=== PATIENT | male | born 1965 | race Two or more races ===

== ENCOUNTER 2017-06-18 18:46 | Inpatient (IN) | payer OTHER ==
[~2017-06-18] VITALS: Ht 180.3 cm; Wt 81.6 kg
[2017-06-18] MEDS ORDERED: Albuterol/Ipratropium 3ml neb HHN ONE (19:15)
--- NOTE | 2017-06-18 19:18 | Emergency Room Report ---
History of Present Illness General Chief Complaint: Abnormal Labs Source: Patient, EMS Present Illness HPI Patient 52-year-old male sent in by primary care physician from group home after increased white blood count and elevated potassium level. Patient had reportedly been noted to have potassium level greater than 6. The patient also had elevated white blood count. 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 Patient is noted to have prior history of brain tumor Allergies: Coded Allergies: No Known Allergies (Unverified , 06/18/17) Patient History Past Medical History: see triage record Reviewed Nursing Documentation: PMH: Agreed, PSxH: Agreed Review of Systems All Other Systems: negative except mentioned in HPI Physical Exam Vital Signs Date Time Temp Pulse Resp B/P (MAP) Pulse Ox O2 Delivery O2 Flow Rate FiO2 06/18/17 18:38 96.1 74 16 98/52 94 Trach Collar 4.0 Sp02 EP Interpretation: reviewed, normal General Appearance: normal inspection, alert, mild distress, Chronically Ill Head: atraumatic ENT: normal ENT inspection, hearing grossly normal, other - dry mucous membranes Neck: normal inspection, full range of motion, supple, no bony tend, tracheotomy Respiratory: normal inspection, no respiratory distress, no retraction, crackles Cardiovascular #1: regular rate, rhythm, no edema Gastrointestinal: normal inspection, normal bowel sounds, non tender, soft, no guarding, no hernia, other - gtube site CDI Genitourinary: no CVA tenderness Musculoskeletal: normal inspection, back normal, normal range of motion Neurologic: normal inspection, alert, oriented x3, responsive, 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 Differential diagnosis included wasn't limited to sepsis, acidosis, pneumonia, renal failure among others.Because of complexity of patient's case laboratory testing and imaging studies were ordered. EKG interpreted by me showed normal sinus rhythm with a rate of [address] changes. Twaves appeared somewhat peaked. The patient was given IV fluids as well as IV calcium and IV antibiotics. Patient was given Kayexalate in the G-tube. Dr. Herminia Thomson was contacted for inpatient management for primary care physcian. Labs Test 06/18/17 18:56 06/18/17 20:47 White Blood Count 12.4 K/UL (4.8-10.8) Red Blood Count 3.77 M/UL (4.70-6.10) Hemoglobin 10.2 G/DL (14.2-18.0) Hematocrit 33.9 % (42.0-52.0) Mean Corpuscular Volume 90 FL (80-99) Mean Corpuscular Hemoglobin 27.0 PG (27.0-31.0) Mean Corpuscular Hemoglobin Concent 30.0 G/DL (32.0-36.0) Red Cell Distribution Width 18.8 % (11.6-14.8) Platelet Count 376 K/UL (150-450) Mean Platelet Volume 5.4 FL (6.5-10.1) Neutrophils (%) (Auto) 69.9 % (45.0-75.0) Lymphocytes (%) (Auto) 18.4 % (20.0-45.0) Monocytes (%) (Auto) 7.9 % (1.0-10.0) Eosinophils (%) (Auto) 2.2 % (0.0-3.0) Basophils (%) (Auto) 1.6 % (0.0-2.0) Sodium Level 136 MMOL/L (136-145) Potassium Level 5.6 MMOL/L (3.5-5.1) Chloride Level 98 MMOL/L (98-107) Carbon Dioxide Level 34 MMOL/L (21-32) Anion Gap 5 mmol/L (5-15) Blood Urea Nitrogen 41 mg/dL (7-18) Creatinine 1.8 MG/DL (0.55-1.30) Estimat Glomerular Filtration Rate 40.0 mL/min (>60) Glucose Level 99 MG/DL (74-106) Lactic Acid Level 0.40 mmol/L (0.66-2.22) Calcium Level 9.2 MG/DL (8.5-10.1) Total Bilirubin 0.2 MG/DL (0.2-1.0) Aspartate Amino Transf (AST/SGOT) 17 U/L (15-37) Alanine Aminotransferase (ALT/SGPT) 19 U/L (12-78) Alkaline Phosphatase 97 U/L (46-116) Total Creatine Kinase 14 U/L (26-308) Creatine Kinase MB < 0.5 NG/ML (0.0-3.6) Creatine Kinase MB Relative Index 3.5 Troponin I 0.000 ng/mL (0.000-0.056) Total Protein 7.5 G/DL (6.4-8.2) Albumin 2.5 G/DL (3.4-5.0) Globulin 5.0 g/dL Albumin/Globulin Ratio 0.5 (1.0-2.7) Urine Color Pale yellow Urine Appearance Clear Urine pH 6 (4.5-8.0) Urine Specific [place] 1.005 (1.005-1.035) Urine Protein Negative (NEGATIVE) Urine Glucose (UA) Negative (NEGATIVE) Urine Ketones Negative (NEGATIVE) Urine Occult Blood Negative (NEGATIVE) Urine Nitrite Negative (NEGATIVE) Urine Bilirubin Negative (NEGATIVE) Urine Urobilinogen Normal MG/DL (0.0-1.0) Urine Leukocyte Esterase Negative (NEGATIVE) EKG Diagnostic Results Rate: normal Rhythm: NSR ST Segments: no acute changes Rhythm Strip Diag. Results EP Interpretation: yes Rhythm: NSR, no PVC's, no ectopy Last Vital Signs Date Time Temp Pulse Resp B/P (MAP) Pulse Ox O2 Delivery O2 Flow Rate FiO2 06/18/17 18:38 96.1 74 16 98/52 94 Trach Collar 4.0 Status: unchanged Disposition: ADMITTED INPATIENT Condition: Serious Referrals: HERMINIA THOMSON (PCP) Bear Gavin Jun 18, 2017 19:18
[2017-06-18 19:20] LABS: BASOPHILS % (AUTO) 1.6 % (0.0-2.0); EOSINOPHILS % (AUTO) 2.2 % (0.0-3.0); LYMPHOCYTES % (AUTO) 18.4 % (20.0-45.0); MEAN CORPUSCULAR VOLUME 90 FL (80-99); MEAN PLATELET VOLUME 5.4 FL (6.5-10.1); MONOCYTES % (AUTO) 7.9 % (1.0-10.0); NEUTROPHILS % (AUTO) 69.9 % (45.0-75.0); PLATELET COUNT 376 K/UL (150-450); RED BLOOD COUNT 3.77 M/UL (4.70-6.10); RED CELL DISTRIBUTION WIDTH 18.8 % (11.6-14.8); WHITE BLOOD COUNT 12.4 K/UL (4.8-10.8)
[2017-06-18 19:41] LABS: ANION GAP 5 mmol/L (5-15); CALCIUM 9.2 MG/DL (8.5-10.1); CARBON DIOXIDE 34 MMOL/L (21-32); CHLORIDE 98 MMOL/L (98-107); CREATININE 1.8 MG/DL (0.55-1.30); POTASSIUM 5.6 MMOL/L (3.5-5.1); SODIUM 136 MMOL/L (136-145)
[2017-06-18 19:59] LABS: ALANINE AMINOTRANSFERASE 19 U/L (12-78); ALBUMIN/GLOBULIN RATIO 0.5 (1.0-2.7); ASPARTATE AMINO TRANSFERASE 17 U/L (15-37); CKMB < 0.5 NG/ML (0.0-3.6); TOTAL PROTEIN 7.5 G/DL (6.4-8.2)
[2017-06-18 20:00] VITALS: BP 85/61
[2017-06-18] MEDS ORDERED: Sodium Polystyrene Sulfonate 15gm Powder GT ONE (20:15)
[2017-06-18 21:28] LABS: APPEARANCE,URINE CLEAR; KETONES,URINE NEGATIVE (NEGATIVE); LEUKOCYTE ESTERASE ,URINE NEGATIVE (NEGATIVE); NITRITE,URINE NEGATIVE (NEGATIVE); PH,URINE 6 (4.5-8.0); PROTEIN,URINE NEGATIVE (NEGATIVE); UROBILINOGEN,URINE NORMAL MG/DL (0.0-1.0)
[2017-06-18] MEDS ORDERED: VANCOMYCIN GT (21:38)
[2017-06-18] MEDS ORDERED: ATORVASTATIN CA20 MG ORAL (21:38)
[2017-06-18] MEDS ORDERED: MILK OF MA400 MG/51 GT (21:38)
[2017-06-18] MEDS ORDERED: KEPPRA XR750 MG GT (21:38)
[2017-06-18] MEDS ORDERED: COLACE100 MG GT (21:38)
[2017-06-18] MEDS ORDERED: VALPROIC A250 MG/5 M PO (21:38)
[2017-06-18] MEDS ORDERED: SENNA8.6 M2 GT (21:38)
[2017-06-18] MEDS ORDERED: ACETAMINOPHEN120 MG GT (21:38)
[2017-06-18] MEDS ORDERED: LOVENOX10 M4 SUBQ (21:38)
[2017-06-18] MEDS ORDERED: FLEET ENEMA133 M1 RC (21:38)
[2017-06-18] MEDS ORDERED: DULCOLAX10 MG RC (21:38)
[2017-06-18] MEDS ORDERED: HUMULIN R100 UNIT/1 SUBQ (21:39)
[2017-06-18 22:57] VITALS: BP 84/51
[2017-06-18] MEDS ORDERED: Calcium Chloride 10% 10ml carpuject IVP ONE (23:00)
[2017-06-19] VITALS (7 sets, daily range): BP systolic 100–130; BP diastolic 61–81
[2017-06-19] MEDS ORDERED: Ipratropium 0.02% Inh Soln 2.5ml UD HHN PRN (05:30)
[2017-06-19] MEDS ORDERED: Milk of Magnesia 30ml Ud GT PRN (05:45)
[2017-06-19] MEDS ORDERED: Acetaminophen 650mg/20.3ml GT PRN (05:45)
[2017-06-19] MEDS ORDERED: Fleet's Enema 133ml RECTAL ONE (05:45)
[2017-06-19] MEDS ORDERED: Zosyn 3.375gm/50ml Premix 50 ML IVPB SCH (06:00)
[2017-06-19] MEDS ORDERED: NS 55 ML IV ONE (06:58)
[2017-06-19] MEDS ORDERED: Zosyn 3.375gm inj ONE (06:58)
[2017-06-19] MEDS ORDERED: Fleet's Enema 133ml RECTAL PRN (07:00)
[2017-06-19] MEDS ORDERED: Vancomycin 1.5gm/D5W 250ml 250 ML IVPB ONE ×2 (07:00→10:00)
[2017-06-19] MEDS: Piperacillin/Tazobactam 3.375 GM in D5W 55 ML IVPB SCH ×3 (07:09→23:48)
[2017-06-19] MEDS: Ipratropium 0.02% Inh Soln 2.5ml UD HHN SCH ×3 (07:18→19:07)
--- NOTE | 2017-06-19 09:06 | Diagnostic Imaging Report ---
Indication: SOB Technique: One view of the chest Comparison: none Findings: There is atelectasis and consolidation at the right lung base. Atelectasis, consolidation, and possible scarring are seen in the left mid and upper lung. There is tracheostomy. There is a right arm PICC versus arm port catheter. There is a left chest pacemaker. The heart is borderline enlarged. Inspiration is suboptimal. Pleural spaces appear to be clear. Impression: Right basilar mid and upper lung consolidation and atelectasis. Borderline cardiomegaly Other findings as noted
--- NOTE | 2017-06-19 09:15 | History & Physical ---
History and Physical History & Physicial 52 year old male admitted for elevated WBC and elevated K. Patient noted to be in acute renal failure. Patient with respiratory failure and trach care. PMH elevated cholesterol trach GT respiratory failure MEDS/ALLERGIES Noted PHYSICAL EXAM WDWN NAD coarse breath sounds bilaterally without rhonchi or wheeze [id number] without MRG NABS nontender no HSM GT trach no CCE nonfocal Laboratory Tests Test 06/18/17 18:56 06/18/17 20:47 White Blood Count 12.4 K/UL (4.8-10.8) H Red Blood Count 3.77 M/UL (4.70-6.10) L Hemoglobin 10.2 G/DL (14.2-18.0) L Hematocrit 33.9 % (42.0-52.0) L Mean Corpuscular Volume 90 FL (80-99) Mean Corpuscular Hemoglobin 27.0 PG (27.0-31.0) Mean Corpuscular Hemoglobin Concent 30.0 G/DL (32.0-36.0) L Red Cell Distribution Width 18.8 % (11.6-14.8) H Platelet Count 376 K/UL (150-450) Mean Platelet Volume 5.4 FL (6.5-10.1) L Neutrophils (%) (Auto) 69.9 % (45.0-75.0) Lymphocytes (%) (Auto) 18.4 % (20.0-45.0) L Monocytes (%) (Auto) 7.9 % (1.0-10.0) Eosinophils (%) (Auto) 2.2 % (0.0-3.0) Basophils (%) (Auto) 1.6 % (0.0-2.0) Sodium Level 136 MMOL/L (136-145) Potassium Level 5.6 MMOL/L (3.5-5.1) H Chloride Level 98 MMOL/L (98-107) Carbon Dioxide Level 34 MMOL/L (21-32) H Anion Gap 5 mmol/L (5-15) Blood Urea Nitrogen 41 mg/dL (7-18) H Creatinine 1.8 MG/DL (0.55-1.30) H Estimat Glomerular Filtration Rate 40.0 mL/min (>60) Glucose Level 99 MG/DL (74-106) Lactic Acid Level 0.40 mmol/L (0.66-2.22) L Calcium Level 9.2 MG/DL (8.5-10.1) Total Bilirubin 0.2 MG/DL (0.2-1.0) Aspartate Amino Transf (AST/SGOT) 17 U/L (15-37) Alanine Aminotransferase (ALT/SGPT) 19 U/L (12-78) Alkaline Phosphatase 97 U/L (46-116) Total Creatine Kinase 14 U/L (26-308) L Creatine Kinase MB < 0.5 NG/ML (0.0-3.6) Creatine Kinase MB Relative Index 3.5 Troponin I 0.000 ng/mL (0.000-0.056) Total Protein 7.5 G/DL (6.4-8.2) Albumin 2.5 G/DL (3.4-5.0) L Globulin 5.0 g/dL Albumin/Globulin Ratio 0.5 (1.0-2.7) L Urine Color Pale yellow Urine Appearance Clear Urine pH 6 (4.5-8.0) Urine Specific [place] 1.005 (1.005-1.035) Urine Protein Negative (NEGATIVE) Urine Glucose (UA) Negative (NEGATIVE) Urine Ketones Negative (NEGATIVE) Urine Occult Blood Negative (NEGATIVE) Urine Nitrite Negative (NEGATIVE) Urine Bilirubin Negative (NEGATIVE) Urine Urobilinogen Normal MG/DL (0.0-1.0) Urine Leukocyte Esterase Negative (NEGATIVE) IMPRESSION respiratory failure trach GT hyperkalemia acute renal failure PLAN IV antibiotics respiratory care trach care oxygen care [facility] meds supportive care suction no wean oxygen therapy prognosis guarded HERMINIA LOVE Jun 19, 2017 09:15
[2017-06-19] MEDS: Valproic Acid 250mg/5ml Liquid GT SCH ×3 (09:45→18:24)
[2017-06-19] MEDS: levETIRAcetam 500mg/5ml Liquid GT SCH ×2 (09:46→23:47)
[2017-06-19] MEDS: Enoxaparin 40mg Inj SUBQ SCH (09:50)
[2017-06-19 10:25] LABS: BASOPHILS % (AUTO) 1.2 % (0.0-2.0); EOSINOPHILS % (AUTO) 1.6 % (0.0-3.0); LYMPHOCYTES % (AUTO) 7.5 % (20.0-45.0); MEAN CORPUSCULAR HEMOGLOBIN 26.8 PG (27.0-31.0); MEAN CORPUSCULAR HGB CONC 30.1 G/DL (32.0-36.0); MEAN CORPUSCULAR VOLUME 89 FL (80-99); MEAN PLATELET VOLUME 5.8 FL (6.5-10.1); MONOCYTES % (AUTO) 7.3 % (1.0-10.0); NEUTROPHILS % (AUTO) 82.4 % (45.0-75.0); PLATELET COUNT 409 K/UL (150-450); RED BLOOD COUNT 4.27 M/UL (4.70-6.10); RED CELL DISTRIBUTION WIDTH 18.8 % (11.6-14.8); WHITE BLOOD COUNT 12.2 K/UL (4.8-10.8)
--- NOTE | 2017-06-19 10:27 | Diagnostic Imaging Report ---
Indication: COPD dyspnea Technique: One view of the chest Comparison: 06/18/2017 Findings: There is interim development of reticulonodular infiltrate in the right upper lobe. Peripheral and central infiltrates versus scarring are again demonstrated in the left lung. Tracheostomy remains. Left chest pacemaker remains. Previously demonstrated right basilar atelectasis has cleared. Right arm PICC remains Impression: New right upper lobe infiltrate. Interim clearing of previously demonstrated right basilar atelectasis Stable left lung parenchymal disease, as described
[2017-06-19 10:37] LABS: ANION GAP 7 mmol/L (5-15); CALCIUM 9.5 MG/DL (8.5-10.1); CARBON DIOXIDE 31 MMOL/L (21-32); CHLORIDE 104 MMOL/L (98-107); CREATININE 1.4 MG/DL (0.55-1.30); GLOMERULAR FILTRATION RATE 53.4 mL/min (>60); SODIUM 141 MMOL/L (136-145)
[2017-06-19 10:40] LABS: POTASSIUM 6.3 MMOL/L (3.5-5.1)
[2017-06-19] MEDS ORDERED: Sodium Polystyrene Sulfonate 15gm Powder GT ONE (11:45)
[2017-06-19] MEDS: Insulin NovoLOG Flexpen S/S (Mod) SUBQ SCH ×2 (12:00→18:00)
[2017-06-19] MEDS ORDERED: Dyna-Hex 2% Top Sol 2oz TOPIC SCH (20:00)
[2017-06-19 20:23] LABS: ANION GAP 7 mmol/L (5-15); CALCIUM 8.7 MG/DL (8.5-10.1); CARBON DIOXIDE 30 MMOL/L (21-32); CHLORIDE 104 MMOL/L (98-107); CREATININE 1.3 MG/DL (0.55-1.30); GLOMERULAR FILTRATION RATE 58.2 mL/min (>60); POTASSIUM 4.9 MMOL/L (3.5-5.1); SODIUM 140 MMOL/L (136-145)
[2017-06-19] MEDS ORDERED: Atorvastatin 20mg tab GT SCH (21:00)
[2017-06-20] MEDS: Ipratropium 0.02% Inh Soln 2.5ml UD HHN SCH ×3 (01:00→13:18)
[2017-06-20 01:59] LABS: ANION GAP 2 mmol/L (5-15); CARBON DIOXIDE 31 MMOL/L (21-32); CHLORIDE 111 MMOL/L (98-107); GLOMERULAR FILTRATION RATE > 60 mL/min (>60); POTASSIUM 3.6 MMOL/L (3.5-5.1); SODIUM 144 MMOL/L (136-145)
[2017-06-20] MEDS ORDERED: Sodium Chloride 500ML 500 ML IVPB ONE (03:00)
[2017-06-20 04:00] VITALS: BP 104/72
[2017-06-20] MEDS: Insulin NovoLOG Flexpen S/S (Mod) SUBQ SCH ×3 (06:00→12:24)
[2017-06-20] MEDS ORDERED: Vancomycin 1 GM in D5W 275 ML IVPB SCH ×2 (07:00→10:00)
--- NOTE | 2017-06-20 07:00 | General Progress Note ---
Assessment/Plan Assessment/Plan IMPRESSION respiratory failure trach GT hyperkalemia acute renal failure PLAN IV antibiotics respiratory care as is trach care oxygen care SNF meds supportive care suction no wean oxygen therapy monitor lytes and intervene prognosis guarded Subjective Allergies: Coded Allergies: No Known Allergies (Unverified , 06/18/17) Subjective care noted no distress Objective Last 24 Hour Vital Signs Date Time Temp Pulse Resp B/P (MAP) Pulse Ox O2 Delivery O2 Flow Rate FiO2 06/20/17 04:00 84 06/20/17 04:00 10.0 50 06/20/17 04:00 97.0 80 20 104/72 98 T-piece 12.0 50 06/20/17 02:00 90 06/20/17 01:29 81 20 94 T-piece 12.0 50 06/20/17 01:28 81 20 94 T-piece 12.0 50 06/20/17 01:28 T-piece 10.0 50 06/20/17 01:27 94 T-piece 12.0 50 06/20/17 00:24 97.9 T-piece 50 06/20/17 00:00 10.0 50 06/19/17 20:00 97.9 86 18 116/77 98 T-piece 12.0 50 06/19/17 20:00 88 06/19/17 20:00 10.0 50 06/19/17 19:25 88 18 98 T-piece 12.0 50 06/19/17 19:10 T-piece 10.0 50 06/19/17 19:10 85 20 95 T-piece 12.0 50 06/19/17 19:09 95 T-piece 12.0 50 06/19/17 19:07 85 20 T-piece 12.0 50 06/19/17 16:05 90 06/19/17 16:00 97.7 91 18 117/81 93 T-piece 06/19/17 16:00 10.0 50 06/19/17 13:25 91 50 06/19/17 13:20 89 17 92 T-piece 12.0 50 06/19/17 13:02 91 20 T-piece 12.0 50 06/19/17 13:02 92 18 T-piece 12.0 50 06/19/17 13:02 92 T-piece 12.0 50 06/19/17 13:02 T-piece 10.0 50 06/19/17 12:00 94 70 06/19/17 12:00 10.0 70 06/19/17 12:00 97.2 90 19 100/67 93 T-piece 13.0 06/19/17 11:43 89 06/19/17 08:48 18 92 15.0 70 06/19/17 08:00 10.0 35 06/19/17 08:00 97.3 89 18 104/68 93 T-piece 06/19/17 08:00 91 06/19/17 07:31 81 18 97 T-piece 10.0 35 06/19/17 07:18 35 06/19/17 07:18 80 18 T-piece 10.0 35 06/19/17 07:15 93 T-piece 10.0 35 06/19/17 07:15 T-piece 10.0 35 Laboratory Tests 06/19/17 09:50: White Blood Count 12.2H, Red Blood Count 4.27L, Hemoglobin 11.5L, Hematocrit 38.1L, Mean Corpuscular Volume 89, Mean Corpuscular Hemoglobin 26.8L, Mean Corpuscular Hemoglobin Concent 30.1L, Red Cell Distribution Width 18.8H, Platelet Count 409, Mean Platelet Volume 5.8L, Neutrophils (%) (Auto) 82.4H, Lymphocytes (%) (Auto) 7.5L, Monocytes (%) (Auto) 7.3, Eosinophils (%) (Auto) 1.6, Basophils (%) (Auto) 1.2, Sodium Level 141, Potassium Level 6.3*H, Chloride Level 104, Carbon Dioxide Level 31, Anion Gap 7, Blood Urea Nitrogen 32H, Creatinine 1.4H, Estimat Glomerular Filtration Rate 53.4, Glucose Level 108H, Calcium Level 9.5 06/19/17 18:15: Sodium Level 140, Potassium Level 4.9, Chloride Level 104, Carbon Dioxide Level 30, Anion Gap 7, Blood Urea Nitrogen 25H, Creatinine 1.3, Estimat Glomerular Filtration Rate 58.2, Glucose Level 83, Calcium Level 8.7 06/20/17 01:30: Sodium Level 144, Potassium Level 3.6, Chloride Level 111H, Carbon Dioxide Level 31, Anion Gap 2L, Blood Urea Nitrogen 20H, Creatinine 1.0, Estimat Glomerular Filtration Rate > 60, Glucose Level 82, Calcium Level 7.0L Height (Feet): 5 Height (Inches): 11.00 Weight (Pounds): 180 Objective WDWN NAD trach clear breath sounds bilaterally without rhonchi or wheeze [id number] without MRG NABS nontender no HSM; GT no CCE nonfocal HERMINIA LOVE Jun 20, 2017 07:00
[2017-06-20 08:19] VITALS: BP 138/92
[2017-06-20] MEDS: Piperacillin/Tazobactam 3.375 GM in D5W 55 ML IVPB SCH (08:41)
[2017-06-20] MEDS: Valproic Acid 250mg/5ml Liquid GT SCH ×2 (09:16→12:23)
[2017-06-20] MEDS: levETIRAcetam 500mg/5ml Liquid GT SCH (09:17)
[2017-06-20] MEDS: Enoxaparin 40mg Inj SUBQ SCH (09:18)
[2017-06-20 10:20] LABS: ANION GAP 3 mmol/L (5-15); BASOPHILS % (AUTO) 2.2 % (0.0-2.0); CALCIUM 8.8 MG/DL (8.5-10.1); CARBON DIOXIDE 34 MMOL/L (21-32); CHLORIDE 106 MMOL/L (98-107); CREATININE 1.1 MG/DL (0.55-1.30); EOSINOPHILS % (AUTO) 3.6 % (0.0-3.0); GLOMERULAR FILTRATION RATE > 60 mL/min (>60); LYMPHOCYTES % (AUTO) 17.1 % (20.0-45.0); MEAN CORPUSCULAR HEMOGLOBIN 27.4 PG (27.0-31.0); MEAN CORPUSCULAR HGB CONC 30.7 G/DL (32.0-36.0); MEAN CORPUSCULAR VOLUME 89 FL (80-99); MEAN PLATELET VOLUME 6.2 FL (6.5-10.1); MONOCYTES % (AUTO) 10.5 % (1.0-10.0); NEUTROPHILS % (AUTO) 66.6 % (45.0-75.0); PLATELET COUNT 342 K/UL (150-450); POTASSIUM 4.2 MMOL/L (3.5-5.1); RED BLOOD COUNT 3.75 M/UL (4.70-6.10); RED CELL DISTRIBUTION WIDTH 18.7 % (11.6-14.8); SODIUM 143 MMOL/L (136-145); WHITE BLOOD COUNT 8.3 K/UL (4.8-10.8)
[2017-06-20] MEDS ORDERED: Tubing IV Secondary IV ONE (11:27)
[2017-06-20] MEDS ORDERED: Sterile Water Irrig 1000ml IRRIG ONE (11:27)
[2017-06-20] MEDS ORDERED: NS 275ml ONE ×2 (11:27→15:36)
[2017-06-20 11:34] VITALS: BP 99/60
[2017-06-20] MEDS ORDERED: Vancomycin 1250mg/D5W 250ml 250 ML IVPB SCH (12:00)
[2017-06-20 13:32] VITALS: BP 126/81
--- NOTE | 2017-06-23 07:44 | Discharge Summary ---
Discharge Summary Hospital Course Date of Admission Jun 18, 2017 at 20:35 Date of Discharge Jun 20, 2017 at 15:37 Admitting Diagnosis hyperkalemia, pneumonia HPI Sushant Orozco is a 52 year old male who was admitted on Jun 18, 2017 at 20: 35 for Hyperkalemia,Pneumonia Hospital Course dc summary #[id number] Discharge Medications Continued Medications: Acetaminophen* (Tylenol*) 120 Mg Supp.rect 640 MG GT Q4H PRN for Mild Pain/Temp > 100.5, SUPP Atorvastatin Calcium* (Atorvastatin Calcium*) 20 Mg Tablet 20 MG ORAL BEDTIME, TAB Bisacodyl (Dulcolax) 10 Mg Supp.rect 10 MG RC, SUPP Bisacodyl (Dulcolax) 10 Mg Supp.rect 10 MG RC PRN for Constipation, SUPP Docusate Sodium* (Colace*) 100 Mg Capsule 100 MG GT DAILY, CAP Enoxaparin* (Lovenox*) 40 Mg/0.4 Ml Inj 40 MG SUBQ DAILY Insulin Regular, Human (Humulin R) 100 Unit/1 Ml Vial 0 SUBQ, VIAL Levetiracetam (Keppra Xr) 750 Mg Tab.er.24h 750 MG GT BID, #30 TAB 0 Refills Magnesium Hydroxide* (Milk Of Magnesia*) 400 Mg/5 Ml Oral.susp 30 ML GT DAILY, ML Na Phos,M-B/Na Phos,Di-Ba (Fleet Enema) 133 Ml Enema 133 ML RC PRN for Constipation, EA Sennosides (Senna) 8.6 Mg Tablet 8.6 MG GT, TAB Valproate Sodium (Valproic Acid) 250 Mg/5 Ml Solution 250 MG PO TID Discharge Condition Upon Discharge: stable Discharge Disposition Patient was discharged to SNF/Subacute Facility(03) Discharge Diagnoses: Discharge Instructions Discharge Instructions Special Instructions I have been assigned to complete a D/C Summary on this account. I was not involved in the patient management Kym Vieyra NP ([facility]anchte[facility]) Jun 23, 2017 07:44
--- NOTE | 2017-06-23 16:45 | Discharge Summary 2 SIG ---
DATE OF ADMISSION: 06/18/2017 DATE OF DISCHARGE: 06/20/2017 REASON FOR ADMISSION: 52-year-old male with history of brain tumor, respiratory failure, tracheostomy dependent, dysphagia, G-tube, COPD, diabetes, and high cholesterol, was sent from the senior care facility for evaluation due to leukocytosis and persistent hyperkalemia. Upon evaluation in the emergency room, the patient was found to have leukocytosis, WBC -12.4, potassium -5.6, BUN -41, and creatinine- 1.8. EKG revealed normal sinus rhythm. Somewhat peaked T-waves. Chest x-ray revealed right basilar mid and upper lung consolidation and atelectasis, borderline cardiomegaly. Lactic acid was within normal limits, and troponin was negative. The patient was admitted for further management of respiratory failure, hyperkalemia, acute renal failure, and possible pneumonia. HOSPITAL STAY: The patient was admitted. The patient was started on IV fluids and empiric antibiotics. Tracheostomy care was provided. Pulmonary toilet was provided. Patient was suctioned as needed. Fraction of inspired oxygen via trach tube was titrated to keep saturation above 92%. Strict aspirations were maintained. The patient was receiving G-tube feeding and able to tolerate feeding. Home medications were resumed. Hyperkalemia was treated. Electrolytes were closely monitored. The patient was clinically improving with the treatment. Leukocytosis resolved. No fever. Potassium was down to 4.2. Renal parameters down to normal. BUN-19 and creatinine- 1.1. The patient was stable for discharge back to senior care facility. Prognosis guarded. FINAL DIAGNOSES: 1. Respiratory failure 2. Tracheostomy dependence. 3. Acute renal failure, likely secondary to dehydration, resolved. 4. Hyperkalemia, resolved. 5. Possible pneumonia. DISCHARGE MEDICATIONS: See medication reconciliation list. DISCHARGE INSTRUCTIONS: The patient was discharged to senior care facility. FOLLOWUP: Follow up with his medical doctor at the facility. Donte Thomson M.D. I have been assigned to dictate discharge summary on this account and I was not involved in the patient's management. Kym Vieyra N.P. ([facility]anchtein) DR: SINDHU JOB#: [id number] CC: MAYLIN
--- NOTE | 2017-07-07 14:49 | Cardiology Report ---
APPROVED REPORT EKG Measurement Heart [id number] [id number] Normal sinus rhythm Left axis deviation Possible Lateral infarct, age undetermined Abnormal ECG
== END 2017-06-20 15:37 | DRG 640 ==
LOC: EDBD 18:46 → EMR 19:05 → 2E 20:35 → EDBEDREQ 22:34 → 2W 23:57 → 2E 06-19 19:30
DX: E87.5 Hyperkalemia (principal); J18.9 Pneumonia, unspecified organism; E86.0 Dehydration; J96.90 Respiratory failure, unspecified, unspecified whether with hypoxia or hypercapnia; N17.9 Acute kidney failure, unspecified; Z43.0 Encounter for attention to tracheostomy; Z43.1 Encounter for attention to gastrostomy; J44.9 Chronic obstructive pulmonary disease, unspecified; E11.9 Type 2 diabetes mellitus without complications; E78.00 Pure hypercholesterolemia, unspecified; Z79.4 Long term (current) use of insulin
CPT/HCPCS: 36415; 71010; 80048; 80053; 81003; 82550; 82553; 82962; 83605; 84484; 85025; 87040; 87081; 93005; 94640; 94664; 94760; 99285; J1815; J7620

== ENCOUNTER 2017-11-02 10:32 | Inpatient (IN) | payer OTHER ==
[2017-11-02] VITALS (20 sets, daily range): BP systolic 74–129; BP diastolic 43–69
[~2017-11-02] VITALS: Ht 175.3 cm; Wt 87.5 kg
[~2017-11-02 10:32] MED LIST: ACETAMINOPHEN120 MG GT; ATORVASTATIN CA20 MG GT; COLACE100 MG GT; DULCOLAX10 MG RC; FLEET ENEMA133 M1 RC; HUMULIN R100 UNIT/1 SUBQ; KEPPRA XR750 MG GT; LOVENOX10 M4 SUBQ; MILK OF MA400 MG/51 GT; SENNA8.6 M2 GT; VALPROIC A250 MG/5 M PO; VANCOMYCIN GT
[2017-11-02] MEDS ORDERED: NEURONTIN100 MG GT (10:42)
[2017-11-02] MEDS ORDERED: ACETAMINOP160 MG/5 M ORAL (10:42)
[2017-11-02] MEDS ORDERED: IVERMECTIN5 GM MC (10:42)
[2017-11-02] MEDS: Ipratropium 0.02% Inh Soln 2.5ml UD HHN SCH ×3 (10:49→11:15)
[2017-11-02] MEDS: Albuterol ud Inhalation HHN SCH ×3 (10:49→11:15)
[2017-11-02 11:08] LABS: BASOPHILS % (AUTO) 1.2 % (0.0-2.0); EOSINOPHILS % (AUTO) 3.5 % (0.0-3.0); HEMATOCRIT 40.8 % (42.0-52.0); HEMOGLOBIN 13.5 G/DL (14.2-18.0); LYMPHOCYTES % (AUTO) 14.7 % (20.0-45.0); MEAN CORPUSCULAR VOLUME 83 FL (80-99); MONOCYTES % (AUTO) 3.7 % (1.0-10.0); NEUTROPHILS % (AUTO) 76.8 % (45.0-75.0); PLATELET COUNT 284 K/UL (150-450); RED CELL DISTRIBUTION WIDTH 15.9 % (11.6-14.8); WHITE BLOOD COUNT 9.4 K/UL (4.8-10.8)
[2017-11-02] MEDS: Levalbuterol Inh UD 1.25mg/0.5ml HHN PRN ×2 (11:15→11:26)
[2017-11-02 11:27] LABS: ANION GAP 7 mmol/L (5-15); BLOOD UREA NITROGEN 53 mg/dL (7-18); CALCIUM 8.7 MG/DL (8.5-10.1); CARBON DIOXIDE 33 MMOL/L (21-32); CHLORIDE 95 MMOL/L (98-107); CREATININE 1.8 MG/DL (0.55-1.30); POTASSIUM 5.6 MMOL/L (3.5-5.1); SODIUM 135 MMOL/L (136-145)
[2017-11-02] MEDS ORDERED: Acetaminophen 650mg/20.3ml GT ONE (11:30)
[2017-11-02 11:36] LABS: ALANINE AMINOTRANSFERASE 25 U/L (12-78); ALBUMIN 2.8 G/DL (3.4-5.0); ALBUMIN/GLOBULIN RATIO 0.6 (1.0-2.7); ALKALINE PHOSPHATASE 91 U/L (46-116); ASPARTATE AMINO TRANSFERASE 32 U/L (15-37); BILIRUBIN,TOTAL 0.3 MG/DL (0.2-1.0); CKMB < 0.5 NG/ML (0.0-3.6); CREATINE KINASE 42 U/L (26-308)
[2017-11-02 11:38] LABS: APPEARANCE,URINE CLEAR; BILIRUBIN, URINE NEGATIVE (NEGATIVE); GLUCOSE, URINE (UA) NEGATIVE (NEGATIVE); KETONES,URINE 1+ (NEGATIVE); LEUKOCYTE ESTERASE ,URINE 1+ (NEGATIVE); NITRITE,URINE NEGATIVE (NEGATIVE); PH,URINE 8 (4.5-8.0); PROTEIN,URINE 2+ (NEGATIVE); UROBILINOGEN,URINE NORMAL MG/DL (0.0-1.0)
[2017-11-02 11:50] LABS: COLOR,URINE YELLOW
[2017-11-02] MEDS ORDERED: Azithromycin 500 MG in NS 275 ML IV ONE (12:00)
[2017-11-02] MEDS ORDERED: Piperacillin/Tazobactam 3.375 GM in NS 110 ML IVPB ONE (12:00)
--- NOTE | 2017-11-02 12:37 | Diagnostic Imaging Report ---
Indication: Shortness of breath Technique: One view of the chest Comparison: 06/19/2017 Findings: Patient's chin obscures the left lung apex. There may be some right infrahilar infiltrate, although this could be an artifact of rotation. The lungs and pleural spaces are clear. The heart size is upper limits normal. There is a tracheostomy. Left chest pacemaker is again demonstrated. Previously demonstrated upper lobe infiltrates are no longer evident Impression: Equivocal right infrahilar infiltrate, versus artifact. Correlate with clinical findings No acute process otherwise
[2017-11-02] MEDS ORDERED: Zosyn 3.375gm inj ONE (13:29)
--- NOTE | 2017-11-02 14:18 | Emergency Room Report ---
History of Present Illness General Chief Complaint: Upper Respiratory Illness Source: Medical Record Present Illness HPI 52-year-old M presents ED for evaluation. Patient brought in by EMS for shortness of breath, hypoxia, fever. Patient resides in nursing home facility. patient has trach/vent. Has G-tube. Patient hypoxic. Tachycardic. Hypotensive. Noted by nursing staff today. Per EMS crackles and wheezing noted. Patient denies chest pain. Patient is febrile. No other aggravating relieving factors. No other associated symptoms Allergies: Coded Allergies: No Known Allergies (Unverified , 06/18/17) Patient History Past Medical History: HTN, other - brain cancer Past Surgical History: none, other - trach/gtube Pertinent Family History: none Social History: Denies: smoking, alcohol use, drug use Immunizations: UTD Reviewed Nursing Documentation: PMH: Agreed; PSxH: Agreed Nursing Documentation-PMH Hx Hypertension: Yes Hx COPD: Yes Hx Diabetes: Yes Hx Gastrointestinal Problems: Yes - dysphagia, encounter attention to gastrostomy Hx Neurological Problems: Yes - malignant neoplasm of the brain Review of Systems All Other Systems: negative except mentioned in HPI Physical Exam Vital Signs Date Time Temp Pulse Resp B/P (MAP) Pulse Ox O2 Delivery O2 Flow Rate FiO2 11/02/17 10:22 150 20 154/98 80 Mechanical Ventilator 11/02/17 10:39 100 11/02/17 11:24 104.7 Sp02 EP Interpretation: reviewed, normal General Appearance: no apparent distress, alert, GCS 15, non-toxic Head: normocephalic, atraumatic Eyes: bilateral eye normal inspection, bilateral eye PERRL ENT: hearing grossly normal, normal pharynx, no angioedema, normal voice Neck: full range of motion, supple/symm/no masses, tracheotomy Respiratory: chest non-tender, respiratory distress, speaking full sentences, wheezing Cardiovascular #1: tachycardia Cardiovascular #2: 2+ carotid (R), 2+ carotid (L), 2+ radial (R), 2+ radial (L) , 2+ dorsalis pedis (R), 2+ dorsalis pedis (L) Gastrointestinal: normal bowel sounds, non tender, soft, non-distended, no guarding, no rebound Rectal: deferred Genitourinary: normal inspection, no CVA tenderness Musculoskeletal: back normal, gait/station normal, normal range of motion, non- tender Neurologic: alert, oriented x3, responsive, motor strength/tone normal, sensory intact, speech normal Psychiatric: judgement/insight normal, memory normal, mood/affect normal, no suicidal/homicidal ideation Reflexes: 3+ bicep (R), 3+ bicep (L), 3+ tricep (R), 3+ tricep (L), 3+ knee (R) , 3+ knee (L) Skin: normal color, no rash, warm/dry, well hydrated Lymphatic: no adenopathy Procedures Critical Care Time Critical Care Time i. I feel this is a highly complex case requiring extensive working including EKG/Rhythm strip, Xray/CT/US, Blood/urine lab work, repeat exams while in ED, and administration of strong opiates/narcotics for pain control, admission to hospital or close patient follow up. Total time: 30 min bedside evaluation and treatment excludes procedures (EKG). Reason for critical care: Hypoxia, hypotensive Possible complications: hypotension, hypertension, IA, shock, arrhythmias, metabolic acidosis, end organ damage, respiratory failure. Interventions: Labs, IV fluids, EKG, chest x-ray, nebulizer treatment, antibiotics, ABG Course: Patient presenting with hypoxia, wheezing, hypotensive. Started on breathing treatments. Labs show sepsis. Right sided pneumonia noted. Patient initially hypotensive but slowly responding to IV fluids. Given broad-spectrum antibiotics. BP drops despite IV hydration. central line placed. pressors started Consultations: nursing staff, EMS, family Performed by: Dr Sosa Tolerated well condition = critical j. because of unstable vital signs this patient had a condition that could potentially threaten life or limb. I feel this is a critical patient who required my full attention while patient was considered critical. Total Critical Care Time excluding procedures was greater than 35 minutes Central Line Central Line : Consent: Verbal Central Line Lumen: triple Maximal Sterile Barrier Tech: yes cap, yes mask, yes sterile gown, yes sterile gloves, yes large sterile sheet, yes hand hygiene, yes chlorhexidine prep Central Line Postion: femoral (R) Anesthesia: Lidocaine Complications: none Central Line Post Position: sutured, good blood return Attempts: One Patient Tolerated: Well Complications: None Medical Decision Making Diagnostic Impression: Primary Impression: Pneumonia Qualified Codes: J18.1 - Lobar pneumonia, unspecified organism Additional Impressions: Hypoxia Renal insufficiency Septic shock ER Course Hospital Course 52 yo M presents to ED for SOB, hypoxic, tachycardic, hypotensive Differential diagnoses include: Pneumonia, UTI, sepsis, dehydration, IA/ unstable angina Clinical course Patient placed on stretcher. On quality assurance monitor final with hypotension/hypoxia. After initial history and physical, I ordered labs, IV fluids, EKG, chest x-ray , blood cultures, UA. nebulizer treatments started Labs - no leukocytosis, hb/hct stable, BUN/Cr 53/1.8, lactate elevated EKG - sinus tachycardia, no acute ischemic changes interpreted by me CXR -R hilar infiltrate ABG shows shows no significant hypoxia after breathing treatment Abx given. O2 sats improved. Despite 30 mL per KG fluid bolus patient remains hypotensive Right femoral central line placed. Pressors started Case discussed with Dr Thomson and they agreed to admit patient to their service for further care and support I feel this is a highly complex case requiring extensive working including EKG/ Rhythm strip, Xray/CT/US, Blood/urine lab work, repeat exams while in ED, and administration of strong opiates/narcotics for pain control, admission to hospital or close patient follow up. Diagnosis - pneumonia, hypoxia, renal insufficiency, septic shock Patient admitted to ICU in critical condition Labs Test 11/02/17 10:41 11/02/17 10:44 11/02/17 11:07 11/02/17 12:15 Arterial Blood pH 7.390 (7.350-7.450) Arterial Blood Partial Pressure CO2 45.0 mmHg (35.0-45.0) Arterial Blood Partial Pressure O2 106.2 mmHg (75.0-100.0) Arterial Blood HCO3 26.8 mmol/L (22.0-26.0) Arterial Blood Oxygen Saturation 97.5 % (92.0-98.0) Arterial Blood Base Excess 1.5 Haja Test Positive White Blood Count 9.4 K/UL (4.8-10.8) Red Blood Count 4.90 M/UL (4.70-6.10) Hemoglobin 13.5 G/DL (14.2-18.0) Hematocrit 40.8 % (42.0-52.0) Mean Corpuscular Volume 83 FL (80-99) Mean Corpuscular Hemoglobin 27.6 PG (27.0-31.0) Mean Corpuscular Hemoglobin Concent 33.1 G/DL (32.0-36.0) Red Cell Distribution Width 15.9 % (11.6-14.8) Platelet Count 284 K/UL (150-450) Mean Platelet Volume 7.8 FL (6.5-10.1) Neutrophils (%) (Auto) 76.8 % (45.0-75.0) Lymphocytes (%) (Auto) 14.7 % (20.0-45.0) Monocytes (%) (Auto) 3.7 % (1.0-10.0) Eosinophils (%) (Auto) 3.5 % (0.0-3.0) Basophils (%) (Auto) 1.2 % (0.0-2.0) Sodium Level 135 MMOL/L (136-145) Potassium Level 5.6 MMOL/L (3.5-5.1) Chloride Level 95 MMOL/L (98-107) Carbon Dioxide Level 33 MMOL/L (21-32) Anion Gap 7 mmol/L (5-15) Blood Urea Nitrogen 53 mg/dL (7-18) Creatinine 1.8 MG/DL (0.55-1.30) Estimat Glomerular Filtration Rate 40.0 mL/min (>60) Glucose Level 166 MG/DL (74-106) Lactic Acid Level 2.80 mmol/L (0.66-2.22) 3.20 mmol/L (0.66-2.22) Calcium Level 8.7 MG/DL (8.5-10.1) Total Bilirubin 0.3 MG/DL (0.2-1.0) Aspartate Amino Transf (AST/SGOT) 32 U/L (15-37) Alanine Aminotransferase (ALT/SGPT) 25 U/L (12-78) Alkaline Phosphatase 91 U/L (46-116) Total Creatine Kinase 42 U/L (26-308) Creatine Kinase MB < 0.5 NG/ML (0.0-3.6) Creatine Kinase MB Relative Index Troponin I 0.000 ng/mL (0.000-0.056) Pro-B-Type Natriuretic Peptide 780 pg/mL (0-125) Total Protein 7.5 G/DL (6.4-8.2) Albumin 2.8 G/DL (3.4-5.0) Globulin 4.7 g/dL Albumin/Globulin Ratio 0.6 (1.0-2.7) Urine Color Yellow Urine Appearance Clear Urine pH 8 (4.5-8.0) Urine Specific [place] 1.010 (1.005-1.035) Urine Protein 2+ (NEGATIVE) Urine Glucose (UA) Negative (NEGATIVE) Urine Ketones 1+ (NEGATIVE) Urine Occult Blood Negative (NEGATIVE) Urine Nitrite Negative (NEGATIVE) Urine Bilirubin Negative (NEGATIVE) Urine Urobilinogen Normal MG/DL (0.0-1.0) Urine Leukocyte Esterase 1+ (NEGATIVE) Urine RBC 0 /HPF (0 - 0) Urine WBC 2-4 /HPF (0 - 0) Urine Squamous Epithelial Cells Occasional /LPF Urine Bacteria Occasional /HPF (NONE) EKG Diagnostic Results Rate: tachycardiac Rhythm: NSR ST Segments: no acute changes ASA given to the pt in ED: No Rhythm Strip Diag. Results EP Interpretation: yes Rhythm: NSR, no PVC's, no ectopy Chest X-Ray Diagnostic Results Chest X-Ray Diagnostic Results : Chest X-Ray Ordered: Yes # of Views/Limited/Complete: 1 View Indication: Shortness of Breath EP Interpretation: Yes Interpretation: no pneumothorax, other - R hilar infiltrate Impression: Other - PNA Electronically Signed by: Electronically signed by Rodri Sosa MD Last Vital Signs Date Time Temp Pulse Resp B/P (MAP) Pulse Ox O2 Delivery O2 Flow Rate FiO2 11/02/17 12:55 124 29 100 11/02/17 11:45 100 Mechanical Ventilator 11/02/17 11:24 104.7 11/02/17 10:58 91/55 Status: improved Disposition: ADMITTED INPATIENT Condition: Critical Referrals: HERMINIA THOMSON (PCP) Rodri Sosa MD Nov 02, 2017 14:18
[2017-11-02] MEDS ORDERED: Azithromycin 500mg Inj IV ONE (14:34)
[2017-11-02] MEDS ORDERED: Lidocaine 1% MPF 10mg/ml 5ml INJ ONE (15:00)
[2017-11-02] MEDS ORDERED: Levophed 4mg/4mL Inj IV ONE ×2 (15:27→15:30)
--- NOTE | 2017-11-02 15:32 | History & Physical ---
History and Physical History & Physicial 52-year-old M presents ED for evaluation. Patient brought in by EMS for shortness of breath, hypoxia, fever. [facility] patient has trach/vent. Has G-tube. Patient hypoxic. Tachycardic. Hypotensive. Allergies: No Known Allergies (Unverified , 06/18/17) Past Medical History: HTN, brain cancer Past Surgical History: trach/gtube Pertinent Family History: none Social History: Denies: smoking, alcohol use, drug use; [facility] patient Reviewed of systems: reviewed Physical WDWN NAD coarse breath sounds bilaterally without rhonchi or wheeze [id number] without MRG NABS nontender no HSM; GT no CCE nonfocal Labs Test 11/02/17 10:41 11/02/17 10:44 11/02/17 11:07 11/02/17 12:15 Arterial Blood pH 7.390 (7.350-7.450) Arterial Blood Partial Pressure CO2 45.0 mmHg (35.0-45.0) Arterial Blood Partial Pressure O2 106.2 mmHg (75.0-100.0) Arterial Blood HCO3 26.8 mmol/L (22.0-26.0) Arterial Blood Oxygen Saturation 97.5 % (92.0-98.0) Arterial Blood Base Excess 1.5 Haja Test Positive White Blood Count 9.4 K/UL (4.8-10.8) Red Blood Count 4.90 M/UL (4.70-6.10) Hemoglobin 13.5 G/DL (14.2-18.0) Hematocrit 40.8 % (42.0-52.0) Mean Corpuscular Volume 83 FL (80-99) Mean Corpuscular Hemoglobin 27.6 PG (27.0-31.0) Mean Corpuscular Hemoglobin Concent 33.1 G/DL (32.0-36.0) Red Cell Distribution Width 15.9 % (11.6-14.8) Platelet Count 284 K/UL (150-450) Mean Platelet Volume 7.8 FL (6.5-10.1) Neutrophils (%) (Auto) 76.8 % (45.0-75.0) Lymphocytes (%) (Auto) 14.7 % (20.0-45.0) Monocytes (%) (Auto) 3.7 % (1.0-10.0) Eosinophils (%) (Auto) 3.5 % (0.0-3.0) Basophils (%) (Auto) 1.2 % (0.0-2.0) Sodium Level 135 MMOL/L (136-145) Potassium Level 5.6 MMOL/L (3.5-5.1) Chloride Level 95 MMOL/L (98-107) Carbon Dioxide Level 33 MMOL/L (21-32) Anion Gap 7 mmol/L (5-15) Blood Urea Nitrogen 53 mg/dL (7-18) Creatinine 1.8 MG/DL (0.55-1.30) Estimat Glomerular Filtration Rate 40.0 mL/min (>60) Glucose Level 166 MG/DL (74-106) Lactic Acid Level 2.80 mmol/L (0.66-2.22) 3.20 mmol/L (0.66-2.22) Calcium Level 8.7 MG/DL (8.5-10.1) Total Bilirubin 0.3 MG/DL (0.2-1.0) Aspartate Amino Transf (AST/SGOT) 32 U/L (15-37) Alanine Aminotransferase (ALT/SGPT) 25 U/L (12-78) Alkaline Phosphatase 91 U/L (46-116) Total Creatine Kinase 42 U/L (26-308) Creatine Kinase MB < 0.5 NG/ML (0.0-3.6) Creatine Kinase MB Relative Index Troponin I 0.000 ng/mL (0.000-0.056) Pro-B-Type Natriuretic Peptide 780 pg/mL (0-125) Total Protein 7.5 G/DL (6.4-8.2) Albumin 2.8 G/DL (3.4-5.0) Globulin 4.7 g/dL Albumin/Globulin Ratio 0.6 (1.0-2.7) Urine Color Yellow Urine Appearance Clear Urine pH 8 (4.5-8.0) Urine Specific [place] 1.010 (1.005-1.035) Urine Protein 2+ (NEGATIVE) Urine Glucose (UA) Negative (NEGATIVE) Urine Ketones 1+ (NEGATIVE) Urine Occult Blood Negative (NEGATIVE) Urine Nitrite Negative (NEGATIVE) Urine Bilirubin Negative (NEGATIVE) Urine Urobilinogen Normal MG/DL (0.0-1.0) Urine Leukocyte Esterase 1+ (NEGATIVE) Urine RBC 0 /HPF (0 - 0) Urine WBC 2-4 /HPF (0 - 0) Urine Squamous Epithelial Cells Occasional /LPF Urine Bacteria Occasional /HPF (NONE) IMPRESSION respiratory failure trach GT brain cancer acute renal failure PLAN IV hydration iv antibiotics follow up HERMINIA LOVE Nov 02, 2017 15:32
[2017-11-02] MEDS ORDERED: Zolpidem 5mg tab ORAL PRN (18:15)
[2017-11-02] MEDS ORDERED: Milk of Magnesia 30ml Ud ORAL PRN (18:15)
[2017-11-02] MEDS: Dyna-Hex 2% Top Sol 2oz TOPIC SCH (19:43)
[2017-11-02] MEDS ORDERED: Vancomycin 1.5gm/D5W 250ml 250 ML IVPB SCH (20:30)
[2017-11-02] MEDS: Atorvastatin 20mg tab GT SCH (20:46)
[2017-11-02] MEDS: levETIRAcetam 500mg/5ml Liquid NG SCH (20:47)
[2017-11-02] MEDS: Heparin 5000 units/ml inj SUBQ SCH (20:49)
[2017-11-02] MEDS: Piperacillin/Tazobactam 3.375 GM in D5W 110 ML IVPB SCH (21:51)
[2017-11-03] VITALS (39 sets, daily range): BP systolic 75–125; BP diastolic 40–75
[2017-11-03] MEDS: Piperacillin/Tazobactam 3.375 GM in D5W 110 ML IVPB SCH ×3 (05:58→21:40)
[2017-11-03 06:27] LABS: HEMATOCRIT 30.2 % (42.0-52.0); HEMOGLOBIN 9.9 G/DL (14.2-18.0); MEAN CORPUSCULAR VOLUME 84 FL (80-99); PLATELET COUNT 238 K/UL (150-450); RED BLOOD COUNT 3.59 M/UL (4.70-6.10); RED CELL DISTRIBUTION WIDTH 16.1 % (11.6-14.8); WHITE BLOOD COUNT 16.2 K/UL (4.8-10.8)
[2017-11-03 06:51] LABS: ANION GAP 8 mmol/L (5-15); BLOOD UREA NITROGEN 31 mg/dL (7-18); CALCIUM 7.5 MG/DL (8.5-10.1); CARBON DIOXIDE 27 MMOL/L (21-32); CHLORIDE 104 MMOL/L (98-107); POTASSIUM 4.5 MMOL/L (3.5-5.1); SODIUM 139 MMOL/L (136-145)
--- NOTE | 2017-11-03 08:23 | General Progress Note ---
Assessment/Plan Assessment/Plan IMPRESSION respiratory failure trach GT brain cancer acute renal failure PLAN IV hydration iv antibiotics follow up cultures pressors as needed transfer out of ICU once hemodynamics stable Subjective Allergies: Coded Allergies: No Known Allergies (Unverified , 06/18/17) Subjective care noted hypotensive Objective Last 24 Hour Vital Signs Date Time Temp Pulse Resp B/P (MAP) Pulse Ox O2 Delivery O2 Flow Rate FiO2 11/03/17 07:00 98 19 108/52 99 Mechanical Ventilator 80 18 06:38 92 22 80 18 06:30 96 20 93/55 100 Mechanical Ventilator 80 18 06:00 96 20 97/49 99 Mechanical Ventilator 80 18 05:30 100 20 85/62 98 Mechanical Ventilator 80 11/03/17 05:00 97 18 99/62 98 Mechanical Ventilator 80 11/03/17 04:32 92 29 80 18 04:30 96 19 106/58 98 Mechanical Ventilator 80 11/03/17 04:00 98.7 93 18 111/57 99 Mechanical Ventilator 80 98.7 11/03/17 04:00 80 11/03/17 04:00 93 18 03:30 96 19 115/74 100 Mechanical Ventilator 80 18 03:30 95 22 80 18 03:00 95 18 102/60 99 Mechanical Ventilator 80 18 02:30 95 17 104/61 99 Mechanical Ventilator 80 18 02:00 93 16 87/40 100 Mechanical Ventilator 80 18 01:30 92 16 95/51 100 Mechanical Ventilator 80 18 01:12 91 20 80 11/03/18 01:00 93 16 95/57 100 Mechanical Ventilator 80 11/03/18 00:30 94 16 87/50 100 Mechanical Ventilator 80 11/03/18 00:00 98.8 94 16 85/50 100 Mechanical Ventilator 80 98.8 11/03/18 00:00 94 //18 23:30 95 16 104/45 100 Mechanical Ventilator 80 4/2/18 23:00 99 16 89/55 100 Mechanical Ventilator 80 /2/18 22:45 90 22 80 4//18 22:30 91 16 89/48 100 Mechanical Ventilator 80 4//18 22:00 91 16 97/54 100 Mechanical Ventilator 80 4/2/18 21:30 98 16 108/57 100 Mechanical Ventilator 80 4/2/18 21:06 94 21 80 4/2/18 21:00 92 16 99/58 100 Mechanical Ventilator 80 4/2/18 20:30 92 16 117/61 100 Mechanical Ventilator 80 4/2/18 20:02 116/65 4/2/18 20:00 98.9 96 19 109/60 100 Mechanical Ventilator 80 98.9 4/2/18 20:00 80 4/2/18 20:00 96 4/2/18 19:30 98 23 80 4/2/18 19:30 96 17 129/68 100 Mechanical Ventilator 80 4/2/18 19:00 92 19 113/61 99 Mechanical Ventilator 80 4/2/18 18:30 89 26 95/52 100 Mechanical Ventilator 80 4/2/18 18:00 89 26 83/48 100 Mechanical Ventilator 80 4/2/18 18:00 91/54 4/2/18 17:31 80 4/2/18 17:30 96 25 102/63 100 Mechanical Ventilator 80 4/2/18 17:16 98.7 100 15 92/53 99 Mechanical Ventilator 80 98.7 4/2/18 17:00 99.0 97 28 74/51 100 Mechanical Ventilator 80 99.0 4/2/18 16:47 95 22 80 4/2/18 16:40 98.7 100 15 92/53 99 Mechanical Ventilator 80 98.7 4/2/18 15:55 100 12 89/49 99 Mechanical Ventilator 80 4/2/18 15:55 89/49 4/2/18 15:50 87/54 4/2/18 14:48 115 29 80 4/2/18 14:42 99.0 4/2/18 14:00 115 14 96/69 100 Mechanical Ventilator 80 4/2/18 13:30 113 18 105/50 100 Mechanical Ventilator 80 4/2/18 13:00 115 18 101/43 100 Mechanical Ventilator 80 4/2/18 12:55 124 29 80 4/2/18 11:45 136 27 100 Mechanical Ventilator 100 4/2/18 11:30 134 23 100 Mechanical Ventilator 100 4/2/18 11:30 135 23 100 Mechanical Ventilator 100 4/2/18 11:24 104.7 4/2/18 11:15 130 23 100 Mechanical Ventilator 100 4/2/18 11:05 134 19 96 Mechanical Ventilator 100 11/02/17 10:58 104.7 141 20 91/55 91 Trach Collar 104.7 11/02/17 10:58 141 20 Trach Collar 11/02/17 10:49 129 24 90 Mechanical Ventilator 100 11/02/17 10:39 120 24 100 11/02/17 10:22 150 20 154/98 80 Mechanical Ventilator Intake and Output 11/02/17 11/03/17 19:00 07:00 Intake Total 2167.5 ml 1159.95 ml Output Total 720 ml Balance 2167.5 ml 439.95 ml Intake Free Water 50 ml 110 ml IV Total 2117.5 ml 559.95 ml Tube Feeding 490 ml Output Urine Total 720 ml # Voids 3 # Bowel Movements 1 Laboratory Tests 11/02/17 10:41: Arterial Blood pH 7.390, Arterial Blood Partial Pressure CO2 45.0, Arterial Blood Partial Pressure O2 106.2H, Arterial Blood HCO3 26.8H, Arterial Blood Oxygen Saturation 97.5, Arterial Blood Base Excess 1.5, Haja Test Positive 11/02/17 10:44: White Blood Count 9.4, Red Blood Count 4.90, Hemoglobin 13.5L, Hematocrit 40.8L , Mean Corpuscular Volume 83, Mean Corpuscular Hemoglobin 27.6, Mean Corpuscular Hemoglobin Concent 33.1, Red Cell Distribution Width 15.9H, Platelet Count 284, Mean Platelet Volume 7.8, Neutrophils (%) (Auto) 76.8H, Lymphocytes (%) (Auto) 14.7L, Monocytes (%) (Auto) 3.7, Eosinophils (%) (Auto) 3.5H, Basophils (%) (Auto) 1.2, Sodium Level 135L, Potassium Level 5.6H, Chloride Level 95L, Carbon Dioxide Level 33H, Anion Gap 7, Blood Urea Nitrogen 53H, Creatinine 1.8H, Estimat Glomerular Filtration Rate 40.0, Glucose Level 166H, Lactic Acid Level 2.80H, Calcium Level 8.7, Total Bilirubin 0.3, Aspartate Amino Transf (AST/SGOT) 32, Alanine Aminotransferase (ALT/SGPT) 25, Alkaline Phosphatase 91, Total Creatine Kinase 42, Creatine Kinase MB < 0.5, Creatine Kinase MB Relative Index , Troponin I 0.000, Pro-B-Type Natriuretic Peptide 780H, Total Protein 7.5, Albumin 2.8L, Globulin 4.7, Albumin/Globulin Ratio 0.6L 11/02/17 11:07: Urine Color Yellow, Urine Appearance Clear, Urine pH 8, Urine Specific [place] 1.010, Urine Protein 2+H, Urine Glucose (UA) Negative, Urine Ketones 1+H, Urine Occult Blood Negative, Urine Nitrite Negative, Urine Bilirubin Negative, Urine Urobilinogen Normal, Urine Leukocyte Esterase 1+H, Urine RBC 0, Urine WBC 2-4, Urine Squamous Epithelial Cells Occasional, Urine Bacteria Occasional 11/02/17 12:15: Lactic Acid Level 3.20H 11/03/17 03:30: White Blood Count 16.2#H, Red Blood Count 3.59L, Hemoglobin 9.9L, Hematocrit 30.2L, Mean Corpuscular Volume 84, Mean Corpuscular Hemoglobin 27.6, Mean Corpuscular Hemoglobin Concent 32.9, Red Cell Distribution Width 16.1H, Platelet Count 238, Mean Platelet Volume 8.1, Neutrophils (%) (Auto) , Lymphocytes (%) (Auto) , Monocytes (%) (Auto) , Eosinophils (%) (Auto) , Basophils (%) (Auto) , Neutrophils % (Manual) [Pending], Lymphocytes % (Manual) [Pending], Platelet Estimate [Pending], Platelet Morphology [Pending], Sodium Level 139, Potassium Level 4.5, Chloride Level 104, Carbon Dioxide Level 27, Anion Gap 8, Blood Urea Nitrogen 31H, Creatinine 1.0, Estimat Glomerular Filtration Rate > 60, Glucose Level 98, Lactic Acid Level 0.90, Calcium Level 7.5L Height (Feet): 5 Height (Inches): 9.00 Weight (Pounds): 178 Objective WDWN NAD coarse breath sounds bilaterally without rhonchi or wheeze [id number] without MRG NABS nontender no HSM no CC reduced ROM nonfocal HERMINIA LOVE Nov 03, 2017 08:23
[2017-11-03] MEDS: levETIRAcetam 500mg/5ml Liquid NG SCH ×2 (08:44→20:55)
[2017-11-03] MEDS: Valproic Acid 250mg/5ml Liquid NG SCH ×3 (08:48→17:35)
[2017-11-03] MEDS: Heparin 5000 units/ml inj SUBQ SCH ×2 (08:52→20:56)
[2017-11-03] MEDS ORDERED: Vancomycin 1250mg/D5W 250ml IVPB SCH ×2 (09:00→21:00)
[2017-11-03] MEDS ORDERED: Docusate 100mg cap ORAL SCH (09:00)
--- NOTE | 2017-11-03 10:28 | Diagnostic Imaging Report ---
Indication: Dyspnea Technique: One view of the chest Comparison: For 09/22/2017 Findings: There is some atelectasis at the left lung base. There is a left chest bifocal pacemaker. Tracheostomy. Previously question right infrahilar infiltrate is no longer evident Impression: Minimal left basilar atelectasis. No acute process otherwise
[2017-11-03] MEDS ORDERED: NS 275ml ONE (14:05)
[2017-11-03] MEDS ORDERED: Tubing IV Secondary IV ONE (14:05)
[2017-11-03] MEDS: Acetaminophen 650mg/20.3ml GT PRN (15:11)
--- NOTE | 2017-11-03 17:45 | Cardiology Report ---
APPROVED REPORT EKG Measurement Heart [id number] DC [id number] Sinus tachycardia Left axis deviation Nonspecific ST abnormality Abnormal ECG low volateg qrs complexes
[2017-11-03] MEDS: Atorvastatin 20mg tab GT SCH (20:54)
[2017-11-03] MEDS: Dyna-Hex 2% Top Sol 2oz TOPIC SCH (20:54)
[2017-11-04] VITALS (11 sets, daily range): BP systolic 92–127; BP diastolic 50–81
[2017-11-04] MEDS: Acetaminophen 650mg/20.3ml GT PRN (04:38)
[2017-11-04 05:24] LABS: BASOPHILS % (AUTO) 0.5 % (0.0-2.0); EOSINOPHILS % (AUTO) 4.5 % (0.0-3.0); HEMATOCRIT 29.9 % (42.0-52.0); HEMOGLOBIN 9.3 G/DL (14.2-18.0); LYMPHOCYTES % (AUTO) 6.4 % (20.0-45.0); MEAN CORPUSCULAR VOLUME 85 FL (80-99); MONOCYTES % (AUTO) 3.8 % (1.0-10.0); NEUTROPHILS % (AUTO) 84.7 % (45.0-75.0); PLATELET COUNT 207 K/UL (150-450); RED BLOOD COUNT 3.52 M/UL (4.70-6.10); WHITE BLOOD COUNT 7.4 K/UL (4.8-10.8)
[2017-11-04] MEDS: Piperacillin/Tazobactam 3.375 GM in D5W 110 ML IVPB SCH ×3 (05:40→13:01)
[2017-11-04 05:45] LABS: ANION GAP 3 mmol/L (5-15); BLOOD UREA NITROGEN 19 mg/dL (7-18); CALCIUM 7.9 MG/DL (8.5-10.1); CARBON DIOXIDE 32 MMOL/L (21-32); CHLORIDE 105 MMOL/L (98-107); CREATININE 0.8 MG/DL (0.55-1.30); POTASSIUM 4.2 MMOL/L (3.5-5.1); SODIUM 140 MMOL/L (136-145)
[2017-11-04] MEDS ORDERED: Levalbuterol Inh UD 1.25mg/0.5ml HHN PRN (06:00)
[2017-11-04] MEDS ORDERED: Acetaminophen 650mg/20.3ml GT PRN (06:15)
--- NOTE | 2017-11-04 08:57 | General Progress Note ---
Assessment/Plan Assessment/Plan IMPRESSION respiratory failure trach GT brain cancer acute renal failure PLAN IV hydration iv antibiotics follow up cultures stable proceed with dc planning Subjective Allergies: Coded Allergies: No Known Allergies (Unverified , 06/18/17) Subjective care noted normotensive Objective Last 24 Hour Vital Signs Date Time Temp Pulse Resp B/P (MAP) Pulse Ox O2 Delivery O2 Flow Rate FiO2 11/04/17 06:44 104 25 80 11/04/17 05:33 100.0 109 23 103/61 99 Mechanical Ventilator 80 100.0 11/04/17 05:21 106 24 80 11/04/17 05:08 98.1 11/04/17 05:00 100.0 112 24 126/81 100 Mechanical Ventilator 80 100.0 11/04/17 04:38 102.3 11/04/17 04:00 80 11/04/17 04:00 102.3 107 22 111/59 100 Mechanical Ventilator 80 102.3 11/04/17 04:00 107 11/04/17 03:11 98 22 80 11/04/17 03:00 112 23 107/50 100 Mechanical Ventilator 80 11/04/17 02:05 114 21 116/61 100 Mechanical Ventilator 80 11/04/17 01:29 106 24 80 11/04/17 01:00 100 24 121/60 100 Mechanical Ventilator 80 11/04/17 00:00 98.9 106 20 106/63 100 Mechanical Ventilator 80 98.9 11/04/17 00:00 106 11/04/17 00:00 80 11/03/17 23:24 102 23 80 11/03/17 23:00 100 21 107/56 99 Mechanical Ventilator 80 11/03/17 22:00 97 20 102/61 99 80 11/03/17 21:28 99 22 80 11/03/17 21:00 100 20 104/54 100 80 11/03/17 20:00 80 11/03/17 20:00 100 21 104/70 100 80 11/03/17 20:00 100 11/03/17 19:22 107 24 80 11/03/17 19:00 99.0 106 22 124/70 98 80 99.0 11/03/17 18:00 100.0 108 22 119/70 98 80 100.0 11/03/17 17:02 104 23 80 11/03/17 17:00 105 22 120/68 98 80 11/03/17 17:00 104 22 125/65 98 80 11/03/17 16:00 109 11/03/17 16:00 80 11/03/17 16:00 100.1 104 22 121/75 98 80 100.1 11/03/17 15:11 100.5 11/03/17 15:00 108 22 121/49 98 80 11/03/17 14:32 103 21 80 11/03/17 14:00 99 19 103/54 97 80 11/03/17 13:00 96 18 112/65 99 80 11/03/17 12:38 95 22 80 11/03/17 12:00 96 11/03/17 12:00 80 11/03/17 12:00 100.2 96 19 96/53 97 80 100.2 11/03/17 11:19 97 20 80 11/03/17 11:15 93 18 89/51 98 80 11/03/17 11:00 18 100/53 98 80 11/03/17 10:45 94 18 100/53 98 Mechanical Ventilator 80 11/03/17 10:30 96 18 75/54 98 Mechanical Ventilator 80 11/03/17 10:15 98 20 112/66 99 Mechanical Ventilator 80 11/03/17 10:00 98 20 104/63 99 Mechanical Ventilator 80 11/03/17 09:45 96 19 91/74 99 Mechanical Ventilator 80 11/03/17 09:30 95 18 104/58 99 Mechanical Ventilator 80 11/03/17 09:00 94 17 100/54 99 Mechanical Ventilator 80 Intake and Output 11/03/17 11/04/17 19:00 07:00 Intake Total 834.35 ml 860.000 ml Output Total 1225 ml 500 ml Balance -390.65 ml 360.000 ml Intake Free Water 100 ml IV Total 134.35 ml 360.000 ml Tube Feeding 600 ml 500 ml Output Urine Total 1225 ml 500 ml # Voids 2 1 # Bowel Movements 1 2 Laboratory Tests 11/04/17 05:00: White Blood Count 7.4#, Red Blood Count 3.52L, Hemoglobin 9.3L, Hematocrit 29.9L , Mean Corpuscular Volume 85, Mean Corpuscular Hemoglobin 26.5L, Mean Corpuscular Hemoglobin Concent 31.1L, Red Cell Distribution Width 16.0H, Platelet Count 207, Mean Platelet Volume 6.6, Neutrophils (%) (Auto) 84.7H, Lymphocytes (%) (Auto) 6.4L, Monocytes (%) (Auto) 3.8, Eosinophils (%) (Auto) 4.5H, Basophils (%) (Auto) 0.5, Sodium Level 140, Potassium Level 4.2, Chloride Level 105, Carbon Dioxide Level 32, Anion Gap 3L, Blood Urea Nitrogen 19H, Creatinine 0.8, Estimat Glomerular Filtration Rate > 60, Glucose Level 111H, Calcium Level 7.9L Height (Feet): 5 Height (Inches): 9.00 Weight (Pounds): 193 Objective WDWN NAD coarse breath sounds bilaterally without rhonchi or wheeze [id number] without MRG NABS nontender no HSM no CC reduced ROM nonfocal HERMINIA LOVE Nov 04, 2017 08:57
[2017-11-04] MEDS ORDERED: Docusate 100mg cap ORAL SCH (09:00)
[2017-11-04] MEDS: Valproic Acid 250mg/5ml Liquid NG SCH ×3 (09:44→19:10)
[2017-11-04] MEDS: levETIRAcetam 500mg/5ml Liquid NG SCH ×2 (09:44→21:00)
[2017-11-04] MEDS: Gabapentin 300 MG/6 ML Soln GT SCH ×2 (09:44→19:10)
[2017-11-04] MEDS: Heparin 5000 units/ml inj SUBQ SCH ×2 (09:48→21:00)
[2017-11-04] MEDS: Vancomycin 1250mg/D5W 250ml 250 ML IVPB SCH ×2 (09:49→21:00)
[2017-11-04] MEDS ORDERED: Pantoprazole Inj IVP SCH (10:00)
[2017-11-04] MEDS ORDERED: Docusate 100mg/10ml Liq NG SCH (10:00)
[2017-11-04] MEDS ORDERED: Milk of Magnesia 30ml Ud ORAL PRN (18:15)
[2017-11-04] MEDS ORDERED: Zolpidem 5mg tab ORAL PRN (18:15)
[2017-11-04] MEDS ORDERED: Dyna-Hex 2% Top Sol 2oz TOPIC SCH (20:00)
[2017-11-04] MEDS ORDERED: Atorvastatin 20mg tab GT SCH (21:00)
--- NOTE | 2017-11-05 15:18 | Discharge Summary ---
Discharge Summary Hospital Course Date of Admission Nov 02, 2017 at 13:22 Date of Discharge Nov 04, 2017 at 21:25 Admitting Diagnosis RESP DISTRESS,HYPOTENSION HPI Sushant Orozco is a 52 year old male who was admitted on Nov 02, 2017 at 13: 22 for Respiratory Distress Hospital Course [id number] Discharge Discharge Disposition Patient was discharged to [facility] Dorothy Lanza NP Nov 05, 2017 15:18
--- NOTE | 2017-11-05 23:00 | Discharge Summary 2 SIG ---
DATE OF ADMISSION: 11/02/2017 DATE OF DISCHARGE: 11/04/2017 BRIEF HOSPITAL COURSE: The patient is a 52-year-old male, who presented to ED for evaluation. He was brought in by EMS due to shortness of breath, hypoxia and fever. He resides in nursing skilled facility and has a trach/vent with PEG tube. He has history significant for brain CA, hypertension, dysphagia, diabetes, and COPD. On evaluation at the ED, the patient was noted to be febrile, temperature was 104.7 degrees. A central line was inserted to the right femoral vein. Blood work showed no leukocytosis. WBC was 9. He had stable hemoglobin and hematocrit. Lactic acid was elevated and creatinine was 1.8 and BUN 53. He was initially on sinus tachycardia; however, EKG with no acute ischemic changes. Chest x-ray showed right hilar infiltrate. He was given IV bolus; however, he remained hypotensive. He was eventually started on IV pressors and was admitted to ICU for evaluation of pneumonia, hypoxia, septic shock and renal insufficiency. He was initially given Zosyn and was continued on IV vancomycin. Blood culture did not isolate any growth. Wound culture with Staphylococcus aureus. He had better blood pressure control. He was taken out of ICU. Repeat chest x-ray showed minimal left basilar atelectasis with no acute process. He was eventually discharged back to SNF. FINAL DIAGNOSES: 1. Acute on chronic respiratory failure. 2. Trach status. 3. G tube. 4. Brain cancer. 5. Acute renal failure. DISPOSITION: The patient was discharged to [facility]. Donte Thomson M.D. I have been assigned to dictate discharge summary on this account and I was not involved in the patient's management. Dorothy Lanza N.P. DR: RAMSEY JOB#: [id number] CC: MAYLIN
== END 2017-11-04 21:25 | DRG 208 ==
LOC: EDBD 10:32 → EMR 11:00 → EDBEDREQ 12:01 → 2W 13:22 → EDBEDREQ 13:54 → EDBEDREQSVC 14:16 → EDBEDREQ 14:54 → EDBEDREQSVC 14:54 → EDBEDREQ 16:25 → ICU 16:32 → 2W 11-04 05:49
PROC: 5A1945Z Respiratory Ventilation, 24-96 Consecutive Hours (ICD-10-PCS; principal; 2017-11-02)
PROC: 06HM33Z Insertion of Infusion Device into Right Femoral Vein, Percutaneous Approach (ICD-10-PCS; principal; 2017-11-02)
DX: J96.20 Acute and chronic respiratory failure, unspecified whether with hypoxia or hypercapnia (principal); N17.9 Acute kidney failure, unspecified; Z43.1 Encounter for attention to gastrostomy; C71.9 Malignant neoplasm of brain, unspecified; Z43.0 Encounter for attention to tracheostomy; I10 Essential (primary) hypertension; R13.10 Dysphagia, unspecified; J44.9 Chronic obstructive pulmonary disease, unspecified
CPT/HCPCS: 36415; 36600; 71045; 80048; 80053; 81003; 82550; 82553; 82803; 83605; 83880; 84484; 85007; 85025; 87040; 87070; 87081; 87181; 87205; 93005; 94002; 94003; 94640; 99291

== ENCOUNTER 2019-01-05 00:13 | Inpatient (IN) | payer MEDICARE, OTHER ==
[~2019-01-05] VITALS: Ht 172.7 cm; Wt 96.6 kg
[2019-01-05] VITALS (7 sets, daily range): BP systolic 100–149; BP diastolic 55–95
[~2019-01-05 00:13] MED LIST changes: +ACETAMINOP160 MG/5 M ORAL; +IVERMECTIN5 GM MC; +NEURONTIN100 MG GT
--- NOTE | 2019-01-05 00:15 | NUR ---
ED Nurse Note: Pt brought to Ed from SNF via ALS, pt reported to have fever and increased opacity in chest x-ray compared to last xray. Pt is A&Ox4, non-verbal but able to make needs known. Pt denies pain
[2019-01-05] MEDS ORDERED: NEURONTIN300 MG ORAL (00:23)
[2019-01-05] MEDS ORDERED: VOLTAREN75 MG PO (00:23)
[2019-01-05] MEDS ORDERED: METFORMIN HCL5000 GM MC (00:23)
[2019-01-05] MEDS ORDERED: TRADJENTA5 MG PO (00:23)
[2019-01-05] MEDS ORDERED: CRANBERRY425 MG PO (00:23)
[2019-01-05] MEDS ORDERED: Sodium Chloride 2,900 ML IVLG ONE (00:30)
[2019-01-05] MEDS ORDERED: Cefepime HCl 2 GM in NS 110 ML IV SCH (00:30)
--- NOTE | 2019-01-05 00:34 | Emergency Room Report ---
History of Present Illness General Chief Complaint: Fever Source: Patient Present Illness HPI This is a 53-year-old male with a history of chronic respiratory failure and has a tracheostomy tube. Also history hypertension and COPD. Has a pacemaker also. Has a history of epilepsy. He presents with chief complaint of fever and shortness of breath and hypoxia. Patient is normally on 40% FiO2. Couple days ago he has nausea and vomiting and was choking with possible aspiration. Chest x-ray showed a left lower lobe infiltrate. He also has a fever of 101.8 this evening. Tylenol was given. Patient denies any plates. Does have coughing. Denies any chest pain. Sent here to be evaluated. History is limited because of his condition. Allergies: Coded Allergies: No Known Allergies (Unverified , 06/18/17) Patient History Past Medical History: see triage record, old chart reviewed, COPD Past Surgical History: none Pertinent Family History: none Social History: Denies: smoking Immunizations: other Reviewed Nursing Documentation: PMH: Agreed; PSxH: Agreed Nursing Documentation-PMH Hx Cardiac Problems: Yes Hx Hypertension: Yes Hx Pacemaker: Yes Hx COPD: Yes Hx Diabetes: Yes Hx Cancer: Yes - BRAIN Hx Gastrointestinal Problems: Yes - dysphagia Hx Neurological Problems: Yes - MUSCLE WEAKNESS Hx Dementia: Yes Hx Epilepsy: Yes Review of Systems Eye: Denies: eye pain, blurred vision ENT: Denies: ear pain, nose congestion, throat swelling Respiratory: Reports: cough, shortness of breath Cardiovascular: Denies: chest pain, palpitations Gastrointestinal: Denies: abdominal pain, diarrhea, nausea, vomiting Musculoskeletal: Denies: back pain, joint pain Skin: Denies: rash Neurological: Denies: headache, numbness Endocrine: Denies: increased thirst, increased urine Hematologic/Lymphatic: Denies: easy bruising All Other Systems: negative except mentioned in HPI Physical Exam Vital Signs Date Time Temp Pulse Resp B/P (MAP) Pulse Ox O2 Delivery O2 Flow Rate FiO2 01/05/19 00:12 98.4 83 19 100/55 (70) 95 Room Air vitals unremarkable Sp02 EP Interpretation: reviewed, normal General Appearance: well appearing, no apparent distress, alert, obese Head: normocephalic, atraumatic Eyes: bilateral eye PERRL, bilateral eye EOMI ENT: hearing grossly normal, normal pharynx Neck: full range of motion, supple, no meningismus Respiratory: chest non-tender, normal breath sounds, crackles, rhonchi Cardiovascular #1: regular rate, rhythm, no murmur Gastrointestinal: normal bowel sounds, non tender, no mass, no organomegaly, no bruit, non-distended Musculoskeletal: back normal, gait/station normal, normal range of motion Psychiatric: mood/affect normal Skin: warm/dry Procedures Critical Care Time Critical Care Time Critical care is mandated in this patient who presented with sepsis from pneumonia. Patient require my urgent intervention to attenuate the risks of metabolic collapse which may lead to cardiovascular collapse and . Critical care time is 35 minutes excluding any reportable procedure. Critical care time included evaluation, multiple reevaluation, looking at old charts, interpreting laboratory and diagnostic data, discussing case with patient and family and consultants, and charting. Medical Decision Making Diagnostic Impression: Primary Impression: Sepsis Qualified Codes: A41.9 - Sepsis, unspecified organism Additional Impressions: HCAP (healthcare-associated pneumonia) ILANA (acute kidney injury) Acute and chronic respiratory failure with hypoxia Aspiration pneumonia Qualified Codes: J69.0 - Pneumonitis due to inhalation of food and vomit ER Course Patient presents with sepsis secondary to health care associated pneumonia. He may also have aspiration pneumonia. I cover both. Patient much improved after IV fluid and antibiotics. Will admit for further workup. I contacted Dr. Thomson for admission. Lab Results Impression labs with leukocytosis EKG Diagnostic Results Rate: normal Rhythm: NSR ST Segments: other - NSST changes Rhythm Strip Diag. Results EP Interpretation: yes Rate: 62 Rhythm: NSR, no PVC's, no ectopy Chest X-Ray Diagnostic Results Chest X-Ray Diagnostic Results : Chest X-Ray Ordered: Yes # of Views/Limited/Complete: 1 View Indication: Shortness of Breath EP Interpretation: Yes Interpretation: no effusion, no pneumothorax, other - Multilobar infiltrates. mostly left side. Last Vital Signs Date Time Temp Pulse Resp B/P (MAP) Pulse Ox O2 Delivery O2 Flow Rate FiO2 01/05/19 00:12 98.4 83 19 100/55 (70) 95 Room Air Status: improved Disposition: ADMITTED INPATIENT Condition: Serious Quinn Zurita MD Jan 05, 2019 00:34
--- NOTE | 2019-01-05 00:38 | NUR ---
RESPIRATORY NOTE: Pt BIBA in ED. Pt placed on ventilator w/ previous settings from facilit: AC 16, 550VT, 50%, PEEP +8. Pt is trach-dependent w/ a cuffed Portex 9 tube. Pt alert/awake, follows commands, able to communicate. B/S rudy. rhonchi, sxn small to moderate amounts of thick/thin, jha-yellow secretions. Vent plugged into red outlet, ambubag at bedside. Pt in no apparent distress, denies chest pain/SOB at this time. Will continue plan of care.
[2019-01-05 01:13] LABS: HEMATOCRIT 35.3 % (42.0-52.0); HEMOGLOBIN 11.4 G/DL (14.2-18.0); MEAN CORPUSCULAR VOLUME 82 FL (80-99); PLATELET COUNT 367 K/UL (150-450); RED BLOOD COUNT 4.32 M/UL (4.70-6.10); RED CELL DISTRIBUTION WIDTH 17.8 % (11.6-14.8); WHITE BLOOD COUNT 19.2 K/UL (4.8-10.8)
[2019-01-05 01:26] LABS: ANION GAP 9 mmol/L (5-15); BLOOD UREA NITROGEN 43 mg/dL (7-18); CALCIUM 9.2 MG/DL (8.5-10.1); CARBON DIOXIDE 26 MMOL/L (21-32); CHLORIDE 104 MMOL/L (98-107); CREATININE 1.9 MG/DL (0.55-1.30); POTASSIUM 4.6 MMOL/L (3.5-5.1); SODIUM 139 MMOL/L (136-145)
[2019-01-05 01:29] LABS: INR 1.1 (0.9-1.1)
[2019-01-05 01:40] LABS: ALANINE AMINOTRANSFERASE 17 U/L (12-78); ALBUMIN 2.5 G/DL (3.4-5.0); ALBUMIN/GLOBULIN RATIO 0.4 (1.0-2.7); ALKALINE PHOSPHATASE 81 U/L (46-116); ASPARTATE AMINO TRANSFERASE 14 U/L (15-37); BILIRUBIN,TOTAL 0.2 MG/DL (0.2-1.0); CKMB 0.7 NG/ML (0.0-3.6); CREATINE KINASE 24 U/L (26-308)
--- NOTE | 2019-01-05 02:24 | NUR ---
Note isaías in EDM - 01/05/19 at 0226 by KDEARING ED Nurse Note: Pt brought to Ed from SNF via ALS, pt reported to have fever and increased opacity in chest x-ray compared to last xray. Pt is A&Ox4, non-verbal but able to make needs known. Pt denies pain
--- NOTE | 2019-01-05 03:16 | NUR ---
TRANSFER TO FLOOR: Patient transferred to as ordered, per Dr Mack. Report given to ALISON Ferrer. Belongings and medications staying with pt. Family and or S/O informed of transfer.
[2019-01-05] MEDS ORDERED: Acetaminophen 650 MG SUPP RECTAL PRN ×2 (07:00→07:15)
[2019-01-05] MEDS ORDERED: Sennosides 8.6mg tab GT PRN (07:15)
[2019-01-05] MEDS ORDERED: Acetaminophen 650mg/20.3ml GT PRN (07:15)
--- NOTE | 2019-01-05 07:43 | NUR ---
.HAND-OFF: Report given to Melodie ROSAS. Patient in stable condition
--- NOTE | 2019-01-05 07:58 | NUR ---
NURSE NOTES: Report received from ALISON Ferrer. Observed patient in bed. Awake and alert. Non-verbal but able to make needs known. On ventilator with setting of Portex 9 AC16 TV 550 FiO2 50% PEEP 8. Pt. is tolerated well with vent setting at this time. Denies pain at this time. IV site intact and patent. Bed in lowest position. Call light within reach. Will continue to monitor.
[2019-01-05] MEDS ORDERED: Sennosides 8.6mg tab ORAL PRN (08:15)
[2019-01-05] MEDS ORDERED: Acetaminophen 650mg/20.3ml ORAL PRN (08:15)
[2019-01-05 08:25] LABS: BASOPHILS % (AUTO) 0.6 % (0.0-2.0); EOSINOPHILS % (AUTO) 2.8 % (0.0-3.0); HEMATOCRIT 30.8 % (42.0-52.0); HEMOGLOBIN 9.7 G/DL (14.2-18.0); LYMPHOCYTES % (AUTO) 14.6 % (20.0-45.0); MEAN CORPUSCULAR VOLUME 83 FL (80-99); MONOCYTES % (AUTO) 7.6 % (1.0-10.0); NEUTROPHILS % (AUTO) 74.3 % (45.0-75.0); PLATELET COUNT 319 K/UL (150-450); RED BLOOD COUNT 3.69 M/UL (4.70-6.10); RED CELL DISTRIBUTION WIDTH 17.8 % (11.6-14.8); WHITE BLOOD COUNT 14.3 K/UL (4.8-10.8)
[2019-01-05 08:40] LABS: ANION GAP 7 mmol/L (5-15); BLOOD UREA NITROGEN 39 mg/dL (7-18); CALCIUM 8.2 MG/DL (8.5-10.1); CARBON DIOXIDE 27 MMOL/L (21-32); CHLORIDE 108 MMOL/L (98-107); CREATININE 1.6 MG/DL (0.55-1.30); POTASSIUM 4.7 MMOL/L (3.5-5.1); SODIUM 142 MMOL/L (136-145)
--- NOTE | 2019-01-05 08:50 | NUR ---
NURSE NOTES: Spoke with pharmacist regarding Valproic acid is not available in Pyxis. Pharmacist said that valproic acid is high dose so they will try to change route to IV. Will follow up.
--- NOTE | 2019-01-05 08:52 | NUR ---
ST NOTE: RECEIVED BEDSIDE SWALLOW EVAL ORDER CHART REVIEWED. PT IS A TRACH AND VENT PT. REQUESTED PASSY-GABRIELLE SPEAKING VALVE(PMV) AND MODIFIED BARIUM SWALLOW STUDY(MBSS) FROM PRIMARY PHYSICIAN, DR. LOVE, RECEIVED TELEPHONE ORDER FROM MD FOR PMV AND MBSS. WILL FOLLOW. RNMICHELLE, NOTIFIED.
[2019-01-05] MEDS ORDERED: Milk of Magnesia 30ml Ud GT SCH (09:00)
[2019-01-05] MEDS ORDERED: Valproic Acid 250mg/5ml Liquid ORAL SCH (09:00)
[2019-01-05] MEDS ORDERED: Diclofenac 75mg tab ORAL SCH (09:00)
[2019-01-05] MEDS ORDERED: Enoxaparin 40mg Inj SUBQ SCH (09:00)
[2019-01-05] MEDS: Docusate 100mg/10ml Liq ORAL SCH (09:03)
[2019-01-05] MEDS: Metoprolol 25mg tab ORAL SCH ×2 (09:03→21:01)
[2019-01-05] MEDS: levETIRAcetam 500mg/5ml Liquid ORAL SCH (09:04)
[2019-01-05] MEDS: Heparin 5000 units/ml inj SUBQ SCH ×2 (09:05→21:01)
--- NOTE | 2019-01-05 09:50 | NUR ---
RESPIRATORY NOTE:PMV trail was performed on pt with ST D[facility] and ALISON Sewell at bedside. PMV was placed inline with cuff deflated. pt tolerated for 30 mins without any s/s of distress. Maintained saturations in the high 90's and hr in the 80s.
--- NOTE | 2019-01-05 10:20 | History & Physical ---
History and Physical History & Physicial History and Physical HPI This is a 53-year-old male with a history of previous CVA, chronic respiratory failure and has a tracheostomy and G-tube, previous ileus. Other Past Medical history Hypertension and COPD, Pacemaker, history of epilepsy. He presents with chief complaint of fever and shortness of breath, cough and hypoxia. Patient is normally on 40% FiO2. Couple days ago he has nausea and vomiting and was choking with possible aspiration. Chest x-ray showed a left lower lobe infiltrate. 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 Denies any chest pain. Allergies: No Known Allergies Past Medical History: Previous CVA, brain cancer, dementia, Chronic respiratory failure, Tracheostomy, G-tube, Previous ileus, Hypertension, COPD, Pacemaker, Epilepsy. Past Surgical History: PPM, Trach, PEG All Other Systems: negative except mentioned in HPI Physical Exam Vital Signs Noted Date Time Temp Pulse Resp B/P (MAP) Pulse Ox O2 Delivery O2 Flow Rate FiO2 01/05/19 00:12 98.4 83 19 100/55 (70) 95 Room Air General Appearance: well appearing, no apparent distress, alert, obese Head: normocephalic, atraumatic Eyes: bilateral eye PERRL, bilateral eye EOMI ENT: hearing grossly normal, normal pharynx Neck: full range of motion, supple, no meningismus Respiratory: chest non-tender, crackles, rhonchi noted Cardiovascular: HS1, HS2, regular rate, rhythm, no murmur Gastrointestinal: normal bowel sounds, non tender, no mass, no organomegaly, no bruit, non-distended Musculoskeletal: back normal, gait/station normal, normal range of motion Psychiatric: mood/affect normal Skin: warm/dry Impression: Pneumonia Sepsis HCAP (healthcare-associated pneumonia) ILANA (acute kidney injury) Aspiration pneumonia Previous CVA, brain cancer, dementia Chronic respiratory failure with hypoxia Tracheostomy, G-tube Hypertension COPD Pacemaker Epilepsy Plan Antibiotics O2 PRN HUMAN 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 mostly left side. Dante Hines MD Jan 05, 2019 10:20
--- NOTE | 2019-01-05 10:56 | NUR ---
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 SEPSIS VS: BP 100/55, P 83, T 98.5, RR 19, SpO2 95 WBC 19.2, RBC 4.32, H&H 9.7/30.8, BUN 43, CR 1.9, AST 14 IS:METRONIDAZOLE 100ml IV CEFEPIME 110ml IV NS 2.9L IVLB LEVOFLOXACIN 150ml IV ADMITTED TO FLU DCP: RETURN TO [facility] Addendum: 01/05/19 at 1435 by Do Stevens LVN SpO2 95 on VENT AC 16, TV 550, PEEP 8.0, FIO2 60
[2019-01-05] MEDS: NovoLOG Insulin Flexpen SUBQ SCH ×3 (11:51→21:00)
--- NOTE | 2019-01-05 11:53 | Diagnostic Imaging Report ---
Indication: Dyspnea Comparison: 11/03/2017 A single view chest radiograph was obtained. Findings: The left lung base is obscured. Underlying pneumonia not excluded. Central vessels are mildly prominent. The heart is normal in size. Tracheostomy and pacemaker noted. IMPRESSION: Question of a left basal infiltrate. Suggest repeating the study with PA and lateral views.
--- NOTE | 2019-01-05 13:21 | NUR ---
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 CURRENT DIET:CCHO LOW, LOW NA/ soft easy chew PO DIET RECOMMENDATIONS: CCHO MED, LOW NA/ texture per SHOPPING INSPECTOR ADDITIONAL RECOMMENDATIONS: 1) TXR pt to bed with bedscale, obtain accurate CBW 2) Monitor PO tolerace, f/up w/ SHOPPING INSPECTOR eval -> monitor need for TF (h/o GT) .
[2019-01-05] MEDS: VALPROATE SODIUM IVPB SCH ×3 (13:28→23:49)
[2019-01-05] MEDS: D5W IVPB SCH ×3 (13:28→23:49)
--- NOTE | 2019-01-05 14:51 | NUR ---
ST NOTE: BEDSIDE SWALLOW EVAL RECEIVED BEDSIDE SWALLOW EVAL ORDER CHART REVIEWED PRIOR THE EVALUATION PT IS A 53-YEAR-OLD MALE WHO WAS ADMITTED DUE TO PNA, FEVER, SOB, HYPOXIA. PER CHART, PT WAS CHOKING AT THE FACILITY. DYSPHAGIA RISK FACTORS: CHRONIC RESP FAILURE WITH TRACHEOSTOMY(PORTEX 9) AND VENTILATOR, COPD, SEIZURE, H/O BRAIN TUMOR(PER PT, WAS IN [facility], 2 TIMES SURGERY IN 2009, FOLLOWED BY RADIATION; AND 2017 WITHOUT RADIATION), DEMENTIA, DM, H/O G-TUBE(REMOVED 2 MONTHS AGO). PER CXR: L LOWER INFILTRATE. PLOF: PT RESIDES AT SUBACUTE UNIT. PER CHART, PT WAS ON [facility] SOFT WITH THIN LIQUIDS DIET WITH PMV DURING MEALS. PER PT'S POLST(LAST YEAR), FULL CODE, FULL TREATMENT, OKAY FOR LONG-TERM ARTIFICIAL FEEDING MEANS, INCLUDING FEEDING TUBES. CURRENT STATS: PT SEEN AT BEDSIDE IN AM, WITH RT, RAY AT BEDSIDE, FIO2: 50%, ON VENTILATOR, TRACH TUBE(PORTEX 9). PASSY-GABRIELLE SPEAKING VALVE(PMV) TRIAL IN-LINE WITH VENTILATOR: ORAL AND TRACHEAL SUCTION PRIOR CUFF DEFLATION, PT WAS ABLE TO TOLERATE CUFF DEFLATION; AND PMV WAS PUT ON, PT WAS ABLE TO TOLERATE IT FOR 30 MINS WITHOUT RESP DISTRESS, MAINTAINED SPO2: 98-100, HEART RATE: 80s. PT HAS A OPTIMAL VOICE, ABLE TO FOLLOW DIRECTIONS, ORIENTED X 4. MILD TO MODERATE DYSARTHRIA WAS NOTED. GIVEN PO TRIALS: THIN(CUP), PUREE(TSP) AND MASTICATED SOLID. INITIAL IMPRESSION: L-SIDED FACIAL WEAKNESS, SEVERELY REDUCED TO NO TONGUE MOVEMENT LATERALLY AND UP AND DOWN, PT STATES THAT HE DOESN'T HAVE GAG REFLEX. GOOD ORAL TRANSIT TIME UNTIL PT INITIATED PHARYNGEAL SWALLOW, FAIR LARYNGEAL ELEVATION, NO OVERT S/S OF ASPIRATION. PT HAS HIGH RISK FOR SILENT ASPIRATION. RECOMMENDATIONS: 1. FOR QUALITY OF LIFE, CONTINUE SOFT, EASY CHEW WITH THIN LIQUIDS. 2. STRICT ASPIRATION/REFLUX PRECAUTIONS WITH 1TO1 SUPERVISION 3. PMV DURING MEALS. 4. WILL FOLLOW MODIFIED BARIUM SWALLOW STUDY D/W PT, RT AND RN.
--- NOTE | 2019-01-05 15:07 | Cardiology Report ---
APPROVED REPORT EKG Measurement Heart [id number] Normal sinus rhythm Low voltage QRS Borderline ECG
--- NOTE | 2019-01-05 15:15 | NUR ---
ST NOTE: MODIFIED BARIUM SWALLOW STUDY COMPLETED MODIFIED BARIUM SWALLOW STUDY PT ALERT, COOPERATIVE, ABLE TO FOLLOW DIRECTIONS. ACCOMPANIED WITH RT, RAY AND MICHELLE ROSAS. PT WITH PASSY-GABRIELLE SPEAKING VALVE WITH CUFF DEFLATION, RT WAS BAGGING PT, SPO2: 98-100, HR:91 GIVEN PO TRIALS: THIN(TSPX2/YEL-BOAX-YQRDH BOLUS/GJX-BLOT-AZEO DOWN WITH HEAD TURN TO L), NECTAR THICK(TSP/GIL-WBQXOPSQLX-LHBJ) HONEY THICK(TSP) PUDDING(TSP) 1/2 SALTINE CRACKER WITH 3CC PUDDING(SMALL BITES) IMPRESSION: PT PRESENTS WITH MODERATE TO SEVERE OROPHARYNGEAL DYSPHAGIA CHARACTERIZED BY REDUCED BOLUS HOLD, ORAL RESIDUE ON THE LEFT SIDE, SLOW MASTICATION TIME DUE TO MINIMAL TO NO TONGUE MOTION AND OVERALL SENSORIMOTOR DEFICITS. AUDIBLE ASPIRATION WITH THIN(CUP-LARGE BOLUS) AND NECTAR THICK(CUP-LARGE BOLUS), EJECTED WITH COUGH; DEEP TRACE LARYNGEAL PENETRATION WITH THIN(CUP), NOT EJECTED AND TRACE LARYNGEAL PENETRATION WITH THIN(TSP) DUE TO DELAYED SWALLOW, REDUCED HYO-LARYNGEAL ELEVATION/EXCURSION, REDUCED LARYNGEAL VESTIBULE CLOSURE. MILD TO MODERATE PHARYNGEAL RESIDUE(TONGUE BASE, VALLECULAE, PYRIFORM SINUSES) SECONDARY TO REDUCED TONGUE BASE RETRACTION, PARTIAL TO NO INVERSION OF EPIGLOTTIC MOVEMENT AND REDUCED LARYNGEAL ELEVATION. NO ASPIRATION WITH THIN(TSP), NECTAR(TSP), HONEY THICK(TSP), PUDDING(TSP) AND MASTICATED SOLID, BUT HAS HIGH RISK FOR CHRONIC ASPIRATION SECONDARY TO OVERALL PHARYNGEAL WEAKNESS AND DECREASED PHARYNGEAL WEAKNESS. PT BENEFITS FROM EFFORTFUL SWALLOW WITH BREATH HOLD, COUGH AND SWALLOW, SWALLOW X 2 TO 3 TIMES, SMALL SIPS AND BITES, SLOW RATE, NO SIGNIFICANT DIFFERENCES FROM CHIN DOWN AND HEAD TURN TO LEFT SIDE. RECOMMENDATIONS: 1. PT REFUSED TO DOWNGRADE DIET OR THICKENED LIQUIDS FOR QUALITY OF LIFE, CONTINUE CCHO(MEDIUM), MILTON SOFT, EASY CHEW WITH THIN LIQUID DIET 2. STRICT ASPIRATION/REFLUX PRECAUTIONS WITH 1TO1 SUPERVISION 3. PASSY-GABRIELLE SPEAKING VALVE(PMV) DURING MEALS 4. SWALLOW TX RE: SUPRAGLOTTIC SWALLOW D/W PT, MICHELLE ROSAS, AND INFORMED , DR. LOVE. POSTED ASPIRATION/REFLUX PRECAUTIONS SIGN
--- NOTE | 2019-01-05 15:24 | NUR ---
ST NOTE: PASSY-GABRIELLE SPEAKING VALVE(PMV) EVAL PASSY-GABRIELLE SPEAKING VALVE(PMV) TRIAL IN-LINE WITH VENTILATOR: ORAL AND TRACHEAL SUCTION PRIOR CUFF DEFLATION, PT WAS ABLE TO TOLERATE CUFF DEFLATION; AND PMV WAS PUT ON, PT WAS ABLE TO TOLERATE IT FOR 30 MINS WITHOUT RESP DISTRESS, MAINTAINED SPO2: 98-100, HEART RATE: 80s. RECOMMENDATIONS: 1. CONTINUE PMV TRIALS TOLERATED BY ST/RT. D/W RN.
[2019-01-05] MEDS: Piperacillin/Tazobactam 3.375 GM in NS 110 ML IVPB SCH ×2 (15:37→22:22)
--- NOTE | 2019-01-05 19:25 | NUR ---
HAND-OFF: Report given to ALISON Ferrer. Stable condition.
--- NOTE | 2019-01-05 19:35 | NUR ---
NURSE NOTES: Received patient from Melodie ROSAS. Patient is awake, oriented x4, non-verbal, but able to make needs known via typing on cell phone. Patient has a trach, Portex 9, settings: AC 16, TV 550, FiO2 50%, PEEP 8. IV site is Right Forearm 20g and Right AC 20g, both are patent and asymptomatic. Bed is locked, placed in lowest position, side rails up x3, side rails padded, call light within reach. All needs met, will continue to monitor
[2019-01-05] MEDS: Atorvastatin 20mg tab ORAL SCH (21:01)
[2019-01-06] VITALS: BP 122/71
[2019-01-06 04:00] VITALS: BP 141/74
[2019-01-06] MEDS: VALPROATE SODIUM IVPB SCH ×3 (05:52→18:32)
[2019-01-06] MEDS: Piperacillin/Tazobactam 3.375 GM in NS 110 ML IVPB SCH ×3 (05:52→21:30)
[2019-01-06] MEDS: D5W IVPB SCH ×3 (05:52→18:32)
[2019-01-06] MEDS: NovoLOG Insulin Flexpen SUBQ SCH ×4 (05:56→20:58)
--- NOTE | 2019-01-06 07:44 | NUR ---
HAND-OFF: Report given to She ROSAS. Patient in stable condition.
--- NOTE | 2019-01-06 07:45 | NUR ---
NURSE NOTES: Received patient in bed. Vent, with no respiratory distress. Awake, aleert, able to make needs known. Call light within reach. Padded side rails for seizure precaution. Contact isolation observed. Will continue to monitor.
[2019-01-06 08:00] VITALS: BP 121/78
[2019-01-06 08:43] LABS: BASOPHILS % (AUTO) 0.8 % (0.0-2.0); EOSINOPHILS % (AUTO) 4.7 % (0.0-3.0); HEMOGLOBIN 10.9 G/DL (14.2-18.0); LYMPHOCYTES % (AUTO) 21.2 % (20.0-45.0); MEAN CORPUSCULAR VOLUME 83 FL (80-99); MONOCYTES % (AUTO) 7.2 % (1.0-10.0); NEUTROPHILS % (AUTO) 66.1 % (45.0-75.0); PLATELET COUNT 390 K/UL (150-450); RED CELL DISTRIBUTION WIDTH 17.6 % (11.6-14.8); WHITE BLOOD COUNT 7.9 K/UL (4.8-10.8)
[2019-01-06 09:06] LABS: BLOOD UREA NITROGEN 27 mg/dL (7-18); CALCIUM 9.3 MG/DL (8.5-10.1); CHLORIDE 107 MMOL/L (98-107); CREATININE 1.3 MG/DL (0.55-1.30); SODIUM 141 MMOL/L (136-145)
[2019-01-06 09:17] LABS: CARBON DIOXIDE 27 MMOL/L (21-32)
[2019-01-06] MEDS: Docusate 100mg/10ml Liq ORAL SCH ×2 (09:35→09:56)
[2019-01-06] MEDS: levETIRAcetam 500mg/5ml Liquid ORAL SCH (09:35)
[2019-01-06] MEDS: Metoprolol 25mg tab ORAL SCH ×2 (09:36→20:55)
[2019-01-06] MEDS: Heparin 5000 units/ml inj SUBQ SCH ×2 (09:37→20:56)
[2019-01-06 12:00] VITALS: BP 102/73
--- NOTE | 2019-01-06 15:21 | NUR ---
P.T NOTE: P.T EVALUATION COMPLETED AND TREATMENT INITIATED. PLEASE REFER TO P.T EVALUATION FOR CURRENT FUNCTIONAL STATUS. PATIENT IS ALERT, ORIENTED TO SELF , PLACE AND SITUATION. PATIENT FOLLOWS COMMANDS , PLEASANT AND COOPERATIVE. NO C/O PAIN BUT FEELING WEAK AND FATIGUE. PATIENT IS LIMITED BY MULTIPLE ESSENTIAL TUBES/LINES ( ON VENT.TRACH) , USED PMV FOR COMMUNICATION. PATIENT CURRENTLY REQUIRE MOD. A X 1 FOR BED MOBILITIES, ABLE TO SIT AT THE EOB UNSUPPORTED. PATIENT WAS TO ABLE INITIATE TRANSFER MOBILITY TASKS WITH MAX A X 2 HOWEVER WAS ONLY ABLE TO PARTIALLY STAND DUE TO MUSCLE WEAKNESS AND DECONDITIONED STATE. PATIENT IS HIGHLY MOTIVATED AND WOULD BENEFIT FROM SKILLED P.T SERVICE TO IMPROVE HIS STRENGTH, ACTIVITY TOLERANCE AND MOBILITY INDEPENDENCE. RECOMMEND RETURN TO SNF WITH CONTINUED REHAB.
[2019-01-06 16:00] VITALS: BP 114/78
--- NOTE | 2019-01-06 18:00 | NUR ---
NURSE NOTES: No signs and symptoms of hypoglycemia within the shift. Will continue to monitor.
--- NOTE | 2019-01-06 19:10 | NUR ---
HAND-OFF: Report given to Laurnet Panda RN.
--- NOTE | 2019-01-06 19:11 | NUR ---
NURSE NOTES: Received patinn Addendum: 01/06/19 at 2003 by Laurent Joyner RN Received patient from She ROSAS. Patient is in bed watching tv with no signs of distress. Patient is oriented X4, on vent and tolerating well. Bed is at its lowest position, call light is in reach and seizure precautions in place.
[2019-01-06 19:36] VITALS: BP 115/80
[2019-01-06] MEDS: Atorvastatin 20mg tab ORAL SCH (20:55)
--- NOTE | 2019-01-06 22:19 | Pulmonology Progress Note ---
Assessment/Plan Assessment/Plan Pulmonary Progress Note HPI This is a 53-year-old male with a history of previous CVA, chronic respiratory failure and has a tracheostomy and G-tube, previous ileus. Other Past Medical history Hypertension and COPD, Pacemaker, history of epilepsy. He presents with chief complaint of fever and shortness of breath, cough and hypoxia. Patient is normally on 40% FiO2. Couple days ago he has nausea and vomiting and was choking with possible aspiration. Chest x-ray showed a left lower lobe infiltrate. 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 Denies any chest pain. Allergies: No Known Allergies Past Medical History: Previous CVA, brain cancer, dementia, Chronic respiratory failure, Tracheostomy, G-tube, Previous ileus, Hypertension, COPD, Pacemaker, Epilepsy. Past Surgical History: PPM, Trach, PEG All Other Systems: negative except mentioned in HPI Physical Exam Vital Signs Noted General Appearance: well appearing, no apparent distress, alert, obese Head: normocephalic, atraumatic Eyes: bilateral eye PERRL, bilateral eye EOMI ENT: hearing grossly normal, normal pharynx Neck: full range of motion, supple, no meningismus Respiratory: chest non-tender, crackles, rhonchi noted Cardiovascular: HS1, HS2, regular rate, rhythm, no murmur Gastrointestinal: normal bowel sounds, non tender, no mass, no organomegaly, no bruit, non-distended Musculoskeletal: back normal, gait/station normal, normal range of motion Psychiatric: mood/affect normal Skin: warm/dry Impression: Pneumonia Sepsis HCAP (healthcare-associated pneumonia) ILANA (acute kidney injury) Aspiration pneumonia Previous CVA, brain cancer, dementia Chronic respiratory failure with hypoxia Tracheostomy, G-tube Hypertension COPD Pacemaker Epilepsy Plan Antibiotics O2 PRN 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 mostly left side. Subjective ROS Limited/Unobtainable: No Allergies: Coded Allergies: No Known Allergies (Unverified , 06/18/17) Objective Last 24 Hour Vital Signs Date Time Temp Pulse Resp B/P (MAP) Pulse Ox O2 Delivery O2 Flow Rate FiO2 01/06/19 21:02 69 18 35 50 01/06/19 20:55 66 115/80 6/6/19 20:00 35 01/06/19 20:00 Mechanical Ventilator 01/06/19 19:43 64 01/06/19 19:36 97.8 66 18 115/80 (92) 98 01/06/19 18:45 66 16 35 50 01/06/19 17:25 71 19 50 01/06/19 16:00 40 01/06/19 16:00 Mechanical Ventilator 01/06/19 16:00 68 01/06/19 16:00 97.7 68 16 114/78 (90) 96 01/06/19 15:19 68 19 50 01/06/19 13:05 82 18 50 01/06/19 12:00 98.1 73 18 102/73 (83) 94 01/06/19 12:00 Mechanical Ventilator 01/06/19 11:52 73 01/06/19 11:50 40 01/06/19 11:00 79 18 50 01/06/19 09:36 77 121/78 01/06/19 08:36 77 18 50 01/06/19 08:00 97.0 74 16 121/78 (92) 96 01/06/19 08:00 Mechanical Ventilator 01/06/19 08:00 50 01/06/19 07:54 62 01/06/19 06:40 73 16 50 01/06/19 05:24 66 16 50 01/06/19 04:00 50 01/06/19 04:00 98.4 70 16 141/74 (96) 100 01/06/19 04:00 Mechanical Ventilator 01/06/19 03:25 64 16 50 01/06/19 03:23 56 01/06/19 01:27 65 16 50 01/06/19 00:35 84 01/06/19 00:00 Mechanical Ventilator 01/06/19 00:00 98.0 65 16 122/71 (88) 100 01/05/19 23:20 67 16 50 Intake and Output 01/05/19 01/06/19 18:59 06:59 Intake Total 487.500 ml 365.000 ml Output Total 1000 ml Balance -512.500 ml 365.000 ml Intake Oral 350 ml 200 ml IV Total 137.500 ml 165.000 ml Output Urine Total 1000 ml # Bowel Movements 2 5 Microbiology Date/Time Source Procedure Growth Status 01/05/19 01:00 Blood Blood Culture - Preliminary NO GROWTH AFTER 24 HOURS Resulted 01/05/19 00:50 Blood Blood Culture - Preliminary NO GROWTH AFTER 24 HOURS Resulted Laboratory Tests 01/06/19 06:40: Arterial Blood pH 7.430, Arterial Blood Partial Pressure CO2 37.6, Arterial Blood Partial Pressure O2 172.3H, Arterial Blood HCO3 24.7, Arterial Blood Oxygen Saturation 98.7, Arterial Blood Base Excess 0.6, Haja Test Positive 01/06/19 08:20: White Blood Count 7.9, Red Blood Count 4.10L, Hemoglobin 10.9L, Hematocrit 34.0L , Mean Corpuscular Volume 83, Mean Corpuscular Hemoglobin 26.6L, Mean Corpuscular Hemoglobin Concent 32.2, Red Cell Distribution Width 17.6H, Platelet Count 390, Mean Platelet Volume 4.8L, Neutrophils (%) (Auto) 66.1, Lymphocytes (%) (Auto) 21.2, Monocytes (%) (Auto) 7.2, Eosinophils (%) (Auto) 4.7H, Basophils (%) (Auto) 0.8, Sodium Level 141, Potassium Level 5.0, Chloride Level 107, Carbon Dioxide Level 27, Blood Urea Nitrogen 27H, Creatinine 1.3, Estimat Glomerular Filtration Rate 58.0, Glucose Level 156H, Calcium Level 9.3, Magnesium Level 1.8 Current Medications Medications (Trade) Dose Ordered Sig/Cherelle Route PRN Reason Start Time Stop Time Status Last Admin Dose Admin Acetaminophen (Tylenol) 650 mg Q4H PRN RECTAL Mild Pain/Temp > 100.5 01/05/19 07:15 02/04/19 07:14 Acetaminophen (Tylenol) 650 mg TIDPRN PRN ORAL Mild Pain/Temp > 100.5 01/05/19 08:15 02/04/19 07:14 Al Hydroxide/Mg Hydroxide (Mylanta) 30 ml Q6H PRN ORAL Heart burn, Upset stomach 01/05/19 07:00 02/04/19 06:59 Atorvastatin Calcium (Lipitor) 20 mg BEDTIME ORAL 01/05/19 21:00 02/04/19 20:59 01/06/19 20:55 Bisacodyl (Dulcolax) 10 mg DAILYPRN PRN RECTAL constipation 01/05/19 07:15 02/04/19 07:14 Dextrose (Dextrose 50%) 25 ml Q30M PRN IV Hypoglycemia 01/05/19 07:15 02/04/19 07:14 Dextrose (Dextrose 50%) 50 ml Q30M PRN IV Hypoglycemia 01/05/19 07:15 02/04/19 07:14 Docusate Sodium (Colace) 100 mg DAILY ORAL 01/05/19 09:00 02/04/19 08:59 01/05/19 09:03 Gabapentin (Neurontin) 300 mg BID ORAL 01/05/19 09:00 02/04/19 08:59 01/06/19 17:27 Heparin Sodium (Porcine) (Heparin 5000 units/ml) 5,000 units EVERY 12 HOURS SUBQ 01/05/19 09:00 02/04/19 08:59 01/06/19 20:56 Insulin Aspart (NovoLOG) BEFORE MEALS AND HS SUBQ 01/05/19 11:30 02/04/19 11:29 01/06/19 20:58 Levetiracetam (Keppra) 750 mg DAILY ORAL 01/05/19 09:00 02/04/19 08:59 01/06/19 09:35 Metoprolol Tartrate (Lopressor) 25 mg Q12HR ORAL 01/05/19 09:00 02/04/19 08:59 01/06/19 20:55 Piperacillin Sod/ Tazobactam Sod 3.375 gm/Sodium Chloride 110 ml @ 27.5 mls/hr Q8HR IVPB 01/05/19 14:00 01/12/19 13:59 01/06/19 21:30 Sennosides (Senokot) 8.6 mg DAILYPRN PRN ORAL Constipation 01/05/19 08:15 02/04/19 07:14 Valproate Sodium 750 mg/Dextrose 55 ml @ 36.667 mls/ hr Q6HR IVPB 01/05/19 13:00 02/04/19 12:59 01/06/19 18:32 Dante Hines MD Jan 06, 2019 22:19
[2019-01-07] VITALS: BP 130/81
[2019-01-07] MEDS: VALPROATE SODIUM IVPB SCH ×4 (00:14→18:06)
[2019-01-07] MEDS: D5W IVPB SCH ×4 (00:14→18:06)
--- NOTE | 2019-01-07 03:00 | NUR ---
NURSE NOTES: Received report from Laurent Rn, pt. in bed Awake, A/O x's 4- able to make needs known, no signs or symptoms of acute cardiac or respiratory distress noted bed in lowest position and call light within easy reach, bed alarm on, side rails up x's and safety brakes engaged, pt. appears to be resting comfortably and appears to be tolerating current vent settings well- AC 16, TV 550, Fio2 at ordered 50% but set at 35% and peep of 8- no distress noted, urinal at bedside and within easy reach- pt. aware to ask for assistance, pt. appears to be clean and dry, RFA 20G and Rt. AC 20 both IVs intact and patent, safety measures continued, will continue with plan of care.
--- NOTE | 2019-01-07 03:05 | NUR ---
HAND-OFF: Report given to Debora ROSAS.
[2019-01-07 04:00] VITALS: BP 135/83
[2019-01-07] MEDS: Piperacillin/Tazobactam 3.375 GM in NS 110 ML IVPB SCH ×3 (06:14→21:03)
[2019-01-07] MEDS: NovoLOG Insulin Flexpen SUBQ SCH ×4 (06:14→20:19)
--- NOTE | 2019-01-07 07:25 | NUR ---
HAND-OFF: Report given to Gus RN, pt. remains stable and no signs of distress noted.
--- NOTE | 2019-01-07 07:30 | NUR ---
NURSE NOTES: Report received from Butch ROSAS.Pt resting in bed awake,alert noted no resp distress,with trach tube to Vent ,on current settings tolerating well,denies any c/o pain or discomfort,S-Tach on the monitor,uses urinal to void,eats orally with Passey magda Valve,IV sites x2 RFA and RAC both intact,SR up x2 HOB elevated,call to within reach at bedside,bed lock in lowest position will continue with plans of care.
[2019-01-07 08:00] VITALS: BP 109/61
--- NOTE | 2019-01-07 09:00 | NUR ---
NURSE NOTES: Resp Therapist tried to wean pt,unable to tolerate.
[2019-01-07] MEDS: Docusate 100mg/10ml Liq ORAL SCH (09:05)
[2019-01-07] MEDS: Metoprolol 25mg tab ORAL SCH ×2 (09:06→20:21)
[2019-01-07] MEDS: levETIRAcetam 500mg/5ml Liquid ORAL SCH (09:06)
[2019-01-07] MEDS: Heparin 5000 units/ml inj SUBQ SCH ×2 (09:11→20:22)
--- NOTE | 2019-01-07 10:30 | NUR ---
NURSE NOTES: Bed bath given,able to move and pull up himself in bed,kept dry and clean,
--- NOTE | 2019-01-07 11:00 | NUR ---
NURSE NOTES: Physical Therapist at bedside,tolerating therapy well,pt cooperative.
[2019-01-07 12:00] VITALS: BP 127/88
--- NOTE | 2019-01-07 15:00 | NUR ---
NURSE NOTES: Resting quietly in bed watching TV,IV to LFA pulled out unintentionally,no bleeding presented.
[2019-01-07 16:00] VITALS: BP 111/72
--- NOTE | 2019-01-07 19:11 | NUR ---
RESPIRATORY NOTE: Received pt. on 840 vent. Vent settings are: A/C rate of 16, VT 550, FI02 35%, PEEP +8. No respiratory distress noted, pt. sP02 @ 99%. Ambu bag @ BS. Vent plugged on red outlet. Will continue to monitor pt.
--- NOTE | 2019-01-07 19:15 | NUR ---
NURSE NOTES: Received report from Gus Rn, pt. in bed Awake, A/O x's 4- able to make needs known, no signs or symptoms of acute cardiac or respiratory distress noted bed in lowest position and call light within easy reach, bed alarm on, side rails up x's 3 and safety brakes engaged, pt. appears to be resting comfortably and appears to be tolerating current vent settings well- AC 16, TV 550, Fio2 at ordered 50% but set at 35% and peep of 8- no distress noted, urinal at bedside and within easy reach- pt. aware to ask for assistance, pt. appears to be clean and dry, All needs attended to, and comfort measures provided, Rt. AC 20G IV intact and patent, safety measures continued, will continue with plan of care.
--- NOTE | 2019-01-07 19:20 | NUR ---
HAND-OFF: Report given to Debora Gregory RN..
--- NOTE | 2019-01-07 19:26 | Pulmonology Progress Note ---
Assessment/Plan Assessment/Plan Pulmonary Progress Note HPI This is a 53-year-old male with a history of previous CVA, chronic respiratory failure and has a tracheostomy and G-tube, previous ileus. Other Past Medical history Hypertension and COPD, Pacemaker, history of epilepsy. He presents with chief complaint of fever and shortness of breath, cough and hypoxia. Patient is normally on 40% FiO2. Couple days ago he has nausea and vomiting and was choking with possible aspiration. Chest x-ray showed a left lower lobe infiltrate. Stable overnight. Denies any chest pain. Allergies: No Known Allergies Past Medical History: Previous CVA, brain cancer, dementia, Chronic respiratory failure, Tracheostomy, G-tube, Previous ileus, Hypertension, COPD, Pacemaker, Epilepsy. Past Surgical History: PPM, Trach, PEG All Other Systems: negative except mentioned in HPI Physical Exam Vital Signs Noted General Appearance: well appearing, no apparent distress, alert, obese Head: normocephalic, atraumatic Eyes: bilateral eye PERRL, bilateral eye EOMI ENT: hearing grossly normal, normal pharynx Neck: full range of motion, supple, no meningismus Respiratory: chest non-tender, crackles, rhonchi noted Cardiovascular: HS1, HS2, regular rate, rhythm, no murmur Gastrointestinal: normal bowel sounds, non tender, no mass, no organomegaly, no bruit, non-distended Musculoskeletal: back normal, gait/station normal, normal range of motion Psychiatric: mood/affect normal Skin: warm/dry Impression: Pneumonia Sepsis HCAP (healthcare-associated pneumonia) ILANA (acute kidney injury) Aspiration pneumonia Previous CVA, brain cancer, dementia Chronic respiratory failure with hypoxia Tracheostomy, G-tube Hypertension COPD Pacemaker Epilepsy Plan Antibiotics O2 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 mostly left side. Subjective ROS Limited/Unobtainable: No Allergies: Coded Allergies: No Known Allergies (Unverified , 06/18/17) Objective Last 24 Hour Vital Signs Date Time Temp Pulse Resp B/P (MAP) Pulse Ox O2 Delivery O2 Flow Rate FiO2 01/07/19 19:13 71 17 35 50 01/07/19 17:29 68 16 35 50 01/07/19 16:00 69 01/07/19 16:00 98.3 68 16 111/72 (85) 98 01/07/19 16:00 Mechanical Ventilator 01/07/19 16:00 35 01/07/19 15:42 69 18 35 50 01/07/19 13:09 68 18 35 50 01/07/19 12:00 60 01/07/19 12:00 98.1 65 20 127/88 (101) 100 01/07/19 12:00 35 01/07/19 12:00 Mechanical Ventilator 01/07/19 10:59 70 18 35 50 01/07/19 09:16 75 17 35 50 01/07/19 09:06 83 109/61 01/07/19 08:00 75 01/07/19 08:00 35 01/07/19 08:00 99.0 83 20 109/61 (77) 95 01/07/19 08:00 Mechanical Ventilator 01/07/19 06:42 72 16 35 50 01/07/19 05:12 60 16 35 50 01/07/19 04:00 35 01/07/19 04:00 Mechanical Ventilator 01/07/19 04:00 65 01/07/19 04:00 97.8 66 18 135/83 (100) 100 01/07/19 03:06 67 17 35 50 01/07/19 01:20 67 16 35 50 01/07/19 00:00 97.2 64 18 130/81 (97) 100 01/07/19 00:00 Mechanical Ventilator 01/06/19 23:38 60 01/06/19 23:00 70 16 35 50 01/06/19 21:02 69 18 35 50 01/06/19 20:55 66 115/80 01/06/19 20:00 35 01/06/19 20:00 Mechanical Ventilator 01/06/19 19:43 64 01/06/19 19:36 97.8 66 18 115/80 (92) 98 Intake and Output 01/06/19 01/07/19 19:00 07:00 Intake Total 635.000 ml 165.001 ml Output Total 1200 ml 1300 ml Balance -565.000 ml -1134.999 ml Intake Oral 360 ml IV Total 275.000 ml 165.001 ml Output Urine Total 1200 ml 1300 ml Microbiology Date/Time Source Procedure Growth Status 01/05/19 01:00 Blood Blood Culture - Preliminary NO GROWTH AFTER 48 HOURS Resulted 01/05/19 00:50 Blood Blood Culture - Preliminary NO GROWTH AFTER 48 HOURS Resulted 01/05/19 02:30 Nasal Nares MRSA Culture - Final Staphylococcus Aureus - Mrsa Complete 01/05/19 02:30 Rectum VRE Culture - Final NO VANCOMYCIN RESISTANT ENTEROCOCCUS ... Complete 01/05/19 02:30 Rectum - Final NO CARBAPENEM-RESISTANT ENTEROBACTERI... Complete Current Medications Medications (Trade) Dose Ordered Sig/Cherelle Route PRN Reason Start Time Stop Time Status Last Admin Dose Admin Acetaminophen (Tylenol) 650 mg Q4H PRN RECTAL Mild Pain/Temp > 100.5 01/05/19 07:15 02/04/19 07:14 Acetaminophen (Tylenol) 650 mg TIDPRN PRN ORAL Mild Pain/Temp > 100.5 01/05/19 08:15 02/04/19 07:14 Al Hydroxide/Mg Hydroxide (Mylanta) 30 ml Q6H PRN ORAL Heart burn, Upset stomach 01/05/19 07:00 02/04/19 06:59 Atorvastatin Calcium (Lipitor) 20 mg BEDTIME ORAL 01/05/19 21:00 02/04/19 20:59 01/06/19 20:55 Bisacodyl (Dulcolax) 10 mg DAILYPRN PRN RECTAL constipation 01/05/19 07:15 02/04/19 07:14 Dextrose (Dextrose 50%) 25 ml Q30M PRN IV Hypoglycemia 01/05/19 07:15 02/04/19 07:14 Dextrose (Dextrose 50%) 50 ml Q30M PRN IV Hypoglycemia 01/05/19 07:15 02/04/19 07:14 Docusate Sodium (Colace) 100 mg DAILY ORAL 01/05/19 09:00 02/04/19 08:59 01/07/19 09:05 Gabapentin (Neurontin) 300 mg BID ORAL 01/05/19 09:00 02/04/19 08:59 01/07/19 18:07 Heparin Sodium (Porcine) (Heparin 5000 units/ml) 5,000 units EVERY 12 HOURS SUBQ 01/05/19 09:00 02/04/19 08:59 01/07/19 09:11 Insulin Aspart (NovoLOG) BEFORE MEALS AND HS SUBQ 01/05/19 11:30 02/04/19 11:29 01/07/19 17:05 Levetiracetam (Keppra) 750 mg DAILY ORAL 01/05/19 09:00 02/04/19 08:59 01/07/19 09:06 Metoprolol Tartrate (Lopressor) 25 mg Q12HR ORAL 01/05/19 09:00 02/04/19 08:59 01/07/19 09:06 Piperacillin Sod/ Tazobactam Sod 3.375 gm/Sodium Chloride 110 ml @ 27.5 mls/hr Q8HR IVPB 01/05/19 14:00 01/12/19 13:59 01/07/19 14:45 Sennosides (Senokot) 8.6 mg DAILYPRN PRN ORAL Constipation 01/05/19 08:15 02/04/19 07:14 Valproate Sodium 750 mg/Dextrose 55 ml @ 36.667 mls/ hr Q6HR IVPB 01/05/19 13:00 02/04/19 12:59 01/07/19 18:06 Dante Hines MD Jan 07, 2019 19:25
[2019-01-07 20:00] VITALS: BP 128/88
[2019-01-07] MEDS: Atorvastatin 20mg tab ORAL SCH (20:21)
[2019-01-08] VITALS: BP 101/69
[2019-01-08] MEDS: D5W IVPB SCH ×4 (00:15→18:37)
[2019-01-08] MEDS: VALPROATE SODIUM IVPB SCH ×4 (00:15→18:37)
[2019-01-08 04:00] VITALS: BP 124/85
[2019-01-08] MEDS: Piperacillin/Tazobactam 3.375 GM in NS 110 ML IVPB SCH ×3 (06:08→21:52)
[2019-01-08] MEDS: NovoLOG Insulin Flexpen SUBQ SCH ×4 (06:10→21:00)
--- NOTE | 2019-01-08 07:00 | NUR ---
RESPIRATORY NOTE: Addendum: 01/08/19 at 0846 by DEANNE IBANEZ RT RESPIRATORY NOTE: RECEIVED PT ON CURRENT VENT SETTINGS: AC 16 550 35% +8. PT RAKESH CURRENT VENT SETTINGS WELL. NO SOB AND NO RESPIRATORY DISTRESS NOTED. TRACH SECURE AND PATENT. SX MODERATE THICK WHITE SECRETIONS. ALARMS ON AND AUDIBLE. VENT PLUGGED INTO RED OUTLET. SPARE TRACH AND AMBU BAG AT BEDSIDE. WILL CONTINUE MONITORING PT CLOSELY.
--- NOTE | 2019-01-08 07:25 | NUR ---
HAND-OFF: Report given to Melodie ROSAS,pt. remains stable and no signs of distress noted.
--- NOTE | 2019-01-08 07:39 | NUR ---
NURSE NOTES: Report received from ALISON Cazares. Observed patient in bed sleeping. Arousable by voice, non-verbal but able to make need known. Denies pain at this time. On ventilator with previous setting. Pt. is tolerated well with ventilator. IV site intact and patent. Bed in lowest position. Call light within reach. Will continue to monitor.
[2019-01-08 08:00] VITALS: BP 134/85
[2019-01-08] MEDS: levETIRAcetam 500mg/5ml Liquid ORAL SCH (08:48)
[2019-01-08] MEDS: Metoprolol 25mg tab ORAL SCH ×2 (08:48→21:00)
[2019-01-08] MEDS: Docusate 100mg/10ml Liq ORAL SCH (08:48)
[2019-01-08] MEDS: Heparin 5000 units/ml inj SUBQ SCH ×2 (08:49→21:52)
[2019-01-08 12:00] VITALS: BP 112/75
[2019-01-08 16:00] VITALS: BP 112/74
[2019-01-08] MEDS ORDERED: NS 275ml ONE (17:44)
--- NOTE | 2019-01-08 18:39 | Pulmonology Progress Note ---
Assessment/Plan Assessment/Plan Pulmonary Progress Note HPI This is a 53-year-old male with a history of previous CVA, chronic respiratory failure and has a tracheostomy and G-tube, previous ileus. Other Past Medical history Hypertension and COPD, Pacemaker, history of epilepsy. He presents with chief complaint of fever and shortness of breath, cough and hypoxia. Patient is normally on 40% FiO2. Couple days ago he has nausea and vomiting and was choking with possible aspiration. Chest x-ray showed a left lower lobe infiltrate. Stable overnight. Denies any chest pain. Allergies: No Known Allergies Past Medical History: Previous CVA, brain cancer, dementia, Chronic respiratory failure, Tracheostomy, G-tube, Previous ileus, Hypertension, COPD, Pacemaker, Epilepsy. Past Surgical History: PPM, Trach, PEG All Other Systems: negative except mentioned in HPI Physical Exam Vital Signs Noted General Appearance: well appearing, no apparent distress, alert, obese Head: normocephalic, atraumatic Eyes: bilateral eye PERRL, bilateral eye EOMI ENT: hearing grossly normal, normal pharynx Neck: full range of motion, supple, no meningismus Respiratory: chest non-tender, crackles, rhonchi noted Cardiovascular: HS1, HS2, regular rate, rhythm, no murmur Gastrointestinal: normal bowel sounds, non tender, no mass, no organomegaly, no bruit, non-distended Musculoskeletal: back normal, gait/station normal, normal range of motion Psychiatric: mood/affect normal Skin: warm/dry Impression: Pneumonia Sepsis HCAP (healthcare-associated pneumonia) ILANA (acute kidney injury) Aspiration pneumonia Previous CVA, brain cancer, dementia Chronic respiratory failure with hypoxia Tracheostomy, G-tube Hypertension COPD Pacemaker Epilepsy Plan 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 mostly left side. Subjective ROS Limited/Unobtainable: No Allergies: Coded Allergies: No Known Allergies (Unverified , 06/18/17) Objective Last 24 Hour Vital Signs Date Time Temp Pulse Resp B/P (MAP) Pulse Ox O2 Delivery O2 Flow Rate FiO2 01/08/19 17:15 78 18 35 50 01/08/19 16:00 Mechanical Ventilator 01/08/19 16:00 97.9 69 16 112/74 (87) 96 01/08/19 16:00 66 01/08/19 16:00 35 01/08/19 15:19 67 16 35 50 01/08/19 13:00 72 19 35 50 01/08/19 12:00 35 01/08/19 12:00 98.5 66 20 112/75 (87) 96 01/08/19 12:00 62 01/08/19 12:00 Mechanical Ventilator 01/08/19 11:00 70 17 35 50 01/08/19 09:20 70 18 35 50 01/08/19 08:48 74 134/85 01/08/19 08:00 98.5 74 20 134/85 (101) 98 01/08/19 08:00 Mechanical Ventilator 01/08/19 08:00 35 01/08/19 08:00 71 01/08/19 07:00 75 18 35 50 01/08/19 04:34 70 18 35 50 01/08/19 04:00 62 01/08/19 04:00 Mechanical Ventilator 01/08/19 04:00 98.0 64 16 124/85 (98) 99 01/08/19 04:00 35 01/08/19 02:52 69 18 35 50 01/08/19 01:06 64 16 35 50 01/08/19 00:00 96.8 69 17 101/69 (80) 97 01/08/19 00:00 Mechanical Ventilator 01/08/19 00:00 65 01/08/19 00:00 35 01/07/19 23:22 72 16 35 50 01/07/19 21:11 64 16 35 50 01/07/19 20:21 67 127/88 01/07/19 20:00 97.2 67 16 128/88 (101) 97 01/07/19 20:00 35 01/07/19 20:00 Mechanical Ventilator 01/07/19 20:00 69 01/07/19 19:13 71 17 35 50 Intake and Output 01/07/19 01/08/19 19:00 07:00 Intake Total 110.0 ml 256.668 ml Output Total 850 ml 700 ml Balance -740.0 ml -443.332 ml IV Total 110.0 ml 256.668 ml Output Urine Total 850 ml 700 ml Current Medications Medications (Trade) Dose Ordered Sig/Cherelle Route PRN Reason Start Time Stop Time Status Last Admin Dose Admin Acetaminophen (Tylenol) 650 mg Q4H PRN RECTAL Mild Pain/Temp > 100.5 01/05/19 07:15 02/04/19 07:14 Acetaminophen (Tylenol) 650 mg TIDPRN PRN ORAL Mild Pain/Temp > 100.5 01/05/19 08:15 02/04/19 07:14 Al Hydroxide/Mg Hydroxide (Mylanta) 30 ml Q6H PRN ORAL Heart burn, Upset stomach 01/05/19 07:00 02/04/19 06:59 Atorvastatin Calcium (Lipitor) 20 mg BEDTIME ORAL 01/05/19 21:00 02/04/19 20:59 01/07/19 20:21 Bisacodyl (Dulcolax) 10 mg DAILYPRN PRN RECTAL constipation 01/05/19 07:15 02/04/19 07:14 Dextrose (Dextrose 50%) 25 ml Q30M PRN IV Hypoglycemia 01/05/19 07:15 02/04/19 07:14 Dextrose (Dextrose 50%) 50 ml Q30M PRN IV Hypoglycemia 01/05/19 07:15 02/04/19 07:14 Docusate Sodium (Colace) 100 mg DAILY ORAL 01/05/19 09:00 02/04/19 08:59 01/08/19 08:48 Gabapentin (Neurontin) 300 mg BID ORAL 01/05/19 09:00 02/04/19 08:59 01/08/19 18:36 Heparin Sodium (Porcine) (Heparin 5000 units/ml) 5,000 units EVERY 12 HOURS SUBQ 01/05/19 09:00 02/04/19 08:59 01/08/19 08:49 Insulin Aspart (NovoLOG) BEFORE MEALS AND HS SUBQ 01/05/19 11:30 02/04/19 11:29 01/08/19 16:34 Levetiracetam (Keppra) 750 mg DAILY ORAL 01/05/19 09:00 02/04/19 08:59 01/08/19 08:48 Metoprolol Tartrate (Lopressor) 25 mg Q12HR ORAL 01/05/19 09:00 02/04/19 08:59 01/08/19 08:48 Piperacillin Sod/ Tazobactam Sod 3.375 gm/Sodium Chloride 110 ml @ 27.5 mls/hr Q8HR IVPB 01/05/19 14:00 01/12/19 13:59 01/08/19 14:22 Sennosides (Senokot) 8.6 mg DAILYPRN PRN ORAL Constipation 01/05/19 08:15 02/04/19 07:14 Valproate Sodium 750 mg/Dextrose 55 ml @ 36.667 mls/ hr Q6HR IVPB 01/05/19 13:00 02/04/19 12:59 01/08/19 18:37 Dante Hines MD Jan 08, 2019 18:39
--- NOTE | 2019-01-08 19:08 | NUR ---
HAND-OFF: Report given to ALISON Mckeon. Stable condition.
--- NOTE | 2019-01-08 19:10 | NUR ---
NURSE NOTES: Report received from MICHELLE MACHADO RN. Patient is awake nonverbal but able to communicate.Trach to vent with Portex 9, mode on AC 16 TV 550 FIO2 35% P8 and sating 96-99% with no respiratory distress.Denies any pain at this time. SR on monitor. vss. afebrile. using urinal. skin intact. call light in reach. bed in lowest position , alarm on. safety measures continued.will resume plan of care.
[2019-01-08 20:00] VITALS: BP 118/78
[2019-01-08] MEDS: Atorvastatin 20mg tab ORAL SCH (21:51)
[2019-01-09] VITALS (7 sets, daily range): BP systolic 109–136; BP diastolic 74–86
[2019-01-09] MEDS: D5W IVPB SCH ×5 (00:09→23:35)
[2019-01-09] MEDS: VALPROATE SODIUM IVPB SCH ×5 (00:09→23:35)
--- NOTE | 2019-01-09 02:00 | NUR ---
NURSE NOTES: Patient asleep in bed comfortably. Tolerating well with current vent settings in no acute respiratory distress noted. o2 saturation 95-98%.No sign of pain. self repositioned.keep patient comfortable.
[2019-01-09] MEDS: Piperacillin/Tazobactam 3.375 GM in NS 110 ML IVPB SCH ×3 (06:07→21:22)
[2019-01-09] MEDS: NovoLOG Insulin Flexpen SUBQ SCH ×4 (06:10→21:19)
--- NOTE | 2019-01-09 06:35 | NUR ---
RESPIRATORY NOTE: RECEIVED PT ON CURRENT VENT SETTINGS: AC 16 550 35% +8. PT RAKESH CURRENT VENT SETTINGS WELL. NO SOB AND NO RESPIRATORY DISTRESS NOTED. TRACH SECURE AND PATENT. SX MODERATE THICK WHITE SECRETIONS. ALARMS ON AND AUDIBLE. VENT PLUGGED INTO RED OUTLET. SPARE TRACH AND AMBU BAG AT BEDSIDE. WILL CONTINUE MONITORING PT CLOSELY.
--- NOTE | 2019-01-09 07:15 | NUR ---
HAND-OFF: Report given to MALATHI ROSAS.REMAINS STABLE IN CONDITION.
--- NOTE | 2019-01-09 07:16 | NUR ---
NURSE NOTES: Received report from ALISON Mckeon. Patient is resting in bed, in stable condition. No s/sx of SOB, breathing is even and unlabored. Vent settings are as ordered. Observed no presence of pain or discomfort at this time. Bed is in lowest position, brakes engaged. Call light is kept within easy reach. Will continue to monitor patient.
--- NOTE | 2019-01-09 07:50 | NUR ---
0750 PER PT REQUEST TO REMAIN ON PMV WHILE EATING. INFORMED PT ONCE FINISH EATING TO INFORM US SO THAT WE CAN REMOVE PMV. PT REFUSED TRACH MASK WHILE EATING. PT VITALS STABLE. SPO2 AT 97%, HEART RATE 88 BPM. NURSE SERVIN AWARE. WILL CONTINUE MONITOR PT CLOSELY. Addendum: 01/09/19 at 0755 by DEANNE IBANEZ RT RESPIRATORY NOTE: 0750 PER PT REQUEST TO REMAIN ON PMV WHILE EATING. INFORMED PT ONCE FINISH EATING TO INFORM US SO THAT WE CAN REMOVE PMV. PT REFUSED TRACH MASK WHILE EATING. PT VITALS STABLE. SPO2 AT 97%, HEART RATE 88 BPM. NURSE SERVIN AWARE. WILL CONTINUE MONITOR PT CLOSELY.
[2019-01-09] MEDS: Metoprolol 25mg tab ORAL SCH ×2 (08:31→21:17)
[2019-01-09] MEDS: Docusate 100mg/10ml Liq ORAL SCH (08:31)
[2019-01-09] MEDS: levETIRAcetam 500mg/5ml Liquid ORAL SCH (08:32)
[2019-01-09] MEDS: Heparin 5000 units/ml inj SUBQ SCH ×2 (08:33→21:21)
--- NOTE | 2019-01-09 12:30 | NUR ---
RESPIRATORY NOTE: PER PT REQUEST TO REMAIN ON PMV WHILE EATING. INFORMED PT ONCE FINISH EATING TO INFORM US SO THAT WE CAN REMOVE PMV. PT REFUSED TRACH MASK WHILE EATING. PT VITALS STABLE. SPO2 AT 96%, HEART RATE 75 BPM. NURSE MALATHI AWARE. WILL CONTINUE MONITOR PT CLOSELY.
--- NOTE | 2019-01-09 17:00 | NUR ---
RESPIRATORY NOTE: PER PT REQUEST TO REMAIN ON PMV WHILE EATING. INFORMED PT ONCE FINISH EATING TO INFORM US SO THAT WE CAN REMOVE PMV. PT REFUSED TRACH MASK WHILE EATING. PT VITALS STABLE. SPO2 AT 98%, HEART RATE 71 BPM. NURSE MALATHI AWARE. WILL CONTINUE MONITOR PT CLOSELY.
--- NOTE | 2019-01-09 18:52 | Pulmonology Progress Note ---
Assessment/Plan Assessment/Plan Pulmonary Progress Note HPI This is a 53-year-old male with a history of previous CVA, chronic respiratory failure and has a tracheostomy and G-tube, previous ileus. Other Past Medical history Hypertension and COPD, Pacemaker, history of epilepsy. He presents with chief complaint of fever and shortness of breath, cough and hypoxia. Patient is normally on 40% FiO2. Couple days ago he has nausea and vomiting and was choking with possible aspiration. Chest x-ray showed a left lower lobe infiltrate. Stable overnight. Denies any chest pain. Allergies: No Known Allergies Past Medical History: Previous CVA, brain cancer, dementia, Chronic respiratory failure, Tracheostomy, G-tube, Previous ileus, Hypertension, COPD, Pacemaker, Epilepsy. Past Surgical History: PPM, Trach, PEG All Other Systems: negative except mentioned in HPI Physical Exam Vital Signs Noted General Appearance: well appearing, no apparent distress, alert, obese Head: normocephalic, atraumatic Eyes: bilateral eye PERRL, bilateral eye EOMI ENT: hearing grossly normal, normal pharynx Neck: full range of motion, supple, no meningismus Respiratory: chest non-tender, crackles, rhonchi noted Cardiovascular: HS1, HS2, regular rate, rhythm, no murmur Gastrointestinal: normal bowel sounds, non tender, no mass, no organomegaly, no bruit, non-distended Musculoskeletal: back normal, gait/station normal, normal range of motion Psychiatric: mood/affect normal Skin: warm/dry Impression: Pneumonia Sepsis HCAP (healthcare-associated pneumonia) ILANA (acute kidney injury) Aspiration pneumonia Previous CVA, brain cancer, dementia Chronic respiratory failure with hypoxia Tracheostomy, G-tube Hypertension COPD Pacemaker Epilepsy Plan Antibiotics O2 PRN [employer] meds PPX Continue Gtube feeds Aspiration precautions Monitor labs Labs: noted EKG: Rate: normal Rhythm: NSR ST Segments: other - NSST changes Chest X-Ray: no effusion, no pneumothorax, other - Multilobar infiltrates. mostly left side. Subjective ROS Limited/Unobtainable: No Allergies: Coded Allergies: No Known Allergies (Unverified , 06/18/17) Objective Last 24 Hour Vital Signs Date Time Temp Pulse Resp B/P (MAP) Pulse Ox O2 Delivery O2 Flow Rate FiO2 01/09/19 17:00 71 18 35 50 01/09/19 16:00 Mechanical Ventilator 01/09/19 16:00 98.8 75 16 133/81 (98) 95 01/09/19 16:00 71 01/09/19 16:00 35 01/09/19 14:30 74 19 35 50 01/09/19 12:30 75 20 35 50 01/09/19 12:00 Mechanical Ventilator 01/09/19 12:00 35 01/09/19 12:00 97.9 77 16 119/74 (89) 95 01/09/19 12:00 73 01/09/19 10:35 72 18 35 50 01/09/19 09:10 77 16 35 50 01/09/19 08:31 76 128/79 01/09/19 08:00 Mechanical Ventilator 01/09/19 08:00 96.9 76 16 126/79 (95) 98 01/09/19 08:00 76 01/09/19 08:00 35 01/09/19 06:35 67 16 35 50 01/09/19 05:02 69 16 35 50 01/09/19 04:00 62 01/09/19 04:00 97.8 54 16 136/86 (103) 98 01/09/19 04:00 Mechanical Ventilator 01/09/19 04:00 35 01/09/19 02:52 65 16 35 50 01/09/19 00:42 61 16 35 50 01/09/19 00:00 35 01/09/19 00:00 64 01/09/19 00:00 Mechanical Ventilator 01/09/19 00:00 98.0 64 16 120/81 (94) 96 01/08/19 22:40 63 16 35 50 01/08/19 21:00 52 118/78 01/08/19 20:52 68 16 35 50 01/08/19 20:00 Mechanical Ventilator 01/08/19 20:00 35 01/08/19 20:00 96.1 70 16 118/78 (91) 96 01/08/19 19:31 72 Intake and Output 01/08/19 01/09/19 19:00 07:00 Intake Total 675.000 ml 379.167 ml Output Total 750 ml 400 ml Balance -75.000 ml -20.833 ml Intake Oral 400 ml 150 ml IV Total 275.000 ml 229.167 ml Output Urine Total 750 ml 400 ml Current Medications Medications (Trade) Dose Ordered Sig/Cherelle Route PRN Reason Start Time Stop Time Status Last Admin Dose Admin Acetaminophen (Tylenol) 650 mg Q4H PRN RECTAL Mild Pain/Temp > 100.5 01/05/19 07:15 02/04/19 07:14 Acetaminophen (Tylenol) 650 mg TIDPRN PRN ORAL Mild Pain/Temp > 100.5 01/05/19 08:15 02/04/19 07:14 Al Hydroxide/Mg Hydroxide (Mylanta) 30 ml Q6H PRN ORAL Heart burn, Upset stomach 01/05/19 07:00 02/04/19 06:59 Atorvastatin Calcium (Lipitor) 20 mg BEDTIME ORAL 01/05/19 21:00 02/04/19 20:59 01/08/19 21:51 Bisacodyl (Dulcolax) 10 mg DAILYPRN PRN RECTAL constipation 01/05/19 07:15 02/04/19 07:14 Dextrose (Dextrose 50%) 25 ml Q30M PRN IV Hypoglycemia 01/05/19 07:15 02/04/19 07:14 Dextrose (Dextrose 50%) 50 ml Q30M PRN IV Hypoglycemia 01/05/19 07:15 02/04/19 07:14 Docusate Sodium (Colace) 100 mg DAILY ORAL 01/05/19 09:00 02/04/19 08:59 01/09/19 08:31 Gabapentin (Neurontin) 300 mg BID ORAL 01/05/19 09:00 02/04/19 08:59 01/09/19 17:13 Heparin Sodium (Porcine) (Heparin 5000 units/ml) 5,000 units EVERY 12 HOURS SUBQ 01/05/19 09:00 02/04/19 08:59 01/09/19 08:33 Insulin Aspart (NovoLOG) BEFORE MEALS AND HS SUBQ 01/05/19 11:30 02/04/19 11:29 01/09/19 17:15 Levetiracetam (Keppra) 750 mg DAILY ORAL 01/05/19 09:00 02/04/19 08:59 01/09/19 08:32 Metoprolol Tartrate (Lopressor) 25 mg Q12HR ORAL 01/05/19 09:00 02/04/19 08:59 01/09/19 08:31 Piperacillin Sod/ Tazobactam Sod 3.375 gm/Sodium Chloride 110 ml @ 27.5 mls/hr Q8HR IVPB 01/05/19 14:00 01/12/19 13:59 01/09/19 14:01 Sennosides (Senokot) 8.6 mg DAILYPRN PRN ORAL Constipation 01/05/19 08:15 02/04/19 07:14 Valproate Sodium 750 mg/Dextrose 55 ml @ 36.667 mls/ hr Q6HR IVPB 01/05/19 13:00 02/04/19 12:59 01/09/19 17:56 Dante Hines MD Jan 09, 2019 18:52
--- NOTE | 2019-01-09 19:16 | NUR ---
HAND-OFF: Report given to ALISON Gonzalez.
--- NOTE | 2019-01-09 19:48 | NUR ---
NURSE NOTES: NURSE NOTES: Received patient from ALISON Zepeda. patient is awake and verbally responsive to commands. denies pain at this time. vent settings are as follows: Portex: 9, AC: 16, TV: 550, FiO2: 35%, PEEP: 8. no s/sx of respiratory distress noted at this time. IV site is patent and intact, running at prescribed rate. bed in lowest position and locked, padded siderails up X2, call light within reach, will continue to monitor.
[2019-01-09] MEDS: Atorvastatin 20mg tab ORAL SCH (21:17)
[2019-01-09] MEDS ORDERED: NS 500ML ONE (22:46)
[2019-01-10] VITALS: BP 118/79
[2019-01-10 04:00] VITALS: BP 121/76
[2019-01-10] MEDS: VALPROATE SODIUM IVPB SCH ×3 (06:05→18:25)
[2019-01-10] MEDS: D5W IVPB SCH ×3 (06:05→18:25)
[2019-01-10] MEDS: Piperacillin/Tazobactam 3.375 GM in NS 110 ML IVPB SCH ×2 (06:06→15:47)
[2019-01-10] MEDS: NovoLOG Insulin Flexpen SUBQ SCH ×4 (06:07→20:17)
--- NOTE | 2019-01-10 07:25 | NUR ---
NURSE NOTES: Received bedside report from Lisa ROSAS. Pt. in bed, asleep but arousable. No sign of distress. On mech. vent. with setting AC16/VT550/FiO2 of 35%/PEEP8. No grimacing noted. IV site at right AC #20g. in placed. patent/intact. Bed in low position, locked. Call light within reach. Will cont. to monitor.
--- NOTE | 2019-01-10 07:25 | NUR ---
HAND-OFF: Report given to ALISON Hood. patient is in stable condition.
[2019-01-10 08:00] VITALS: BP 104/69
[2019-01-10] MEDS: Metoprolol 25mg tab ORAL SCH ×2 (09:00→20:19)
[2019-01-10] MEDS: Docusate 100mg/10ml Liq ORAL SCH (09:43)
[2019-01-10] MEDS: Heparin 5000 units/ml inj SUBQ SCH ×2 (09:43→20:18)
[2019-01-10] MEDS: levETIRAcetam 500mg/5ml Liquid ORAL SCH (09:44)
[2019-01-10 12:00] VITALS: BP 119/52
--- NOTE | 2019-01-10 15:45 | NUR ---
CASE MANAGEMENT: REVIEW 01/10/2019 SI:SEPSIS. PNEUMONITIS. T 96.8 HR 74 RR 20 B/P 119/52 SATS 95% ON MECH VENT FiO2 35 NO LABS TODAY IS:LIPITOR PO QHS GABAPENTIN PO BID KEPPRA PO QD INSULIN ASPART SUBQ AC/HS LOPRESSOR PO Q12H VALPROATE IV Q6H ZOSYN IV Q8H SDU
[2019-01-10 16:00] VITALS: BP 140/91
--- NOTE | 2019-01-10 16:25 | NUR ---
NURSE NOTES: Seen by Dr. Hines and order RN for d/c back to SNF[facility]Subacute. Pt. remain stable.
--- NOTE | 2019-01-10 17:17 | NUR ---
DISCHARGE DISPOSITION: PLEASE READ PATIENT TO BE DISCHARGED TO [facility] [address] [facility] [address] T: [phone]>>> CALL RN SUP FOR REPORT [facility] W/ RT ETA 1930 LONG TERM TRANSFER REPORT TO BE PROVIDED
--- NOTE | 2019-01-10 17:54 | NUR ---
NURSE NOTES: Called [facility] and gave report to Luz Maria ROSAS.
--- NOTE | 2019-01-10 19:03 | NUR ---
HAND-OFF: Report given to Riya ROSAS. Pt. remain stable.
--- NOTE | 2019-01-10 19:04 | NUR ---
NURSE NOTES: BEDSIDE REPORT RECEIVED FROM ALISON FORREST. PT IS X4, ABLE TO MAKE NEEDS KNOWN. 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 VENT SETTINGS PORTEX 9, AC 16, TV 550, FIO2 35, PEEP 8; TOLERATING WELL. NO S/S OF DISTRESS NOTED. L/GT NOTED, NOT IN USE, PT HAS PO DIET. SKIN IS CLEAN, DRY, INTACT. RAC 20; ASYMPTOMATIC. PT TO D/C BACK TO [facility]. BED IS LOCKED IN LOWEST POSITION, SR X3, CALL CHO W/ IN REACH, BED ALARM ON. WILL CONTINUE TO MONITOR AND FOLLOW W/ PLAN OF CARE.
[2019-01-10] MEDS: Atorvastatin 20mg tab ORAL SCH (20:11)
[2019-01-10 20:19] VITALS: BP 140/91
--- NOTE | 2019-01-10 21:00 | NUR ---
HAND-OFF: Report given to ALISON IGNACIO. PT DISCHARGED TO [facility]. PT IN STABLE CONDITION.
[2019-01-10] MEDS ORDERED: Tubing IV Secondary IV ONE (21:12)
--- NOTE | 2019-01-11 12:04 | Discharge Summary ---
Discharge Summary Discharge Summary _ DATE OF ADMISSION: 01/05/2019 DATE OF DISCHARGE: 01/10/2019 DISCHARGED BY: Dr. Hines REASON FOR ADMISSION: 53 years old male with past medical history of chronic respiratory failure, tracheostomy , hypertension, COPD, pacemaker, seizure disorder, brain cancer, was sent from the senior living facility for evaluation due to fever , shortness of breath and hypoxia. Patient normally on 40% FiO2. Two days ago he had nausea , vomiting and was choking . There was a concern of possible aspiration. Patient was coughing. No chest pain Chest x-ray revealed left lower lobe infiltrate. Patient also had a fever of 101.8 in the evening. Patient received Tylenol at the facility and was sent to emergency room for further evaluation. Upon evaluation no fever. Laboratory work-up revealed leukocytosis WBC 19.2, hemoglobin 11.4, hematocrit 35.3, platelet count 367. Lactic acid 1.6. Chemistry revealed BUN 43, creatinine 1.9. Stable electrolytes. Troponin negative. EKG revealed normal sinus rhythm, no acute ischemic changes. Albumin 2.5. Chest x-ray revealed questionable left basal infiltrate. In emergency department patient received IV fluids, pancultured, started on empiric antibiotics and admitted to [facility] for further management. HOSPITAL COURSE: Patient admitted to [facility]. Ventilator support provided. Tracheostomy care provided. Pulmonary toilet provided as needed. Aspiration precaution maintained. Patient was suctioned as needed. ABG was stable on current settings ; settings were continued as is. Patient started on broad-spectrum antibiotic and intravenous hydration. Blood cultures were negative. Leukocytosis resolved. No fevers. DVT prophylaxis provided. Blood sugar was managed with sliding scale of insulin. Seizure precautions maintained. Depakote continued. No evidence of seizure activity while in the hospital. Strict aspiration precaution maintained. G-tube feeding continued. Patient tolerated G-tube feeding GI prophylaxis provided. Bowel regimen instituted. Supportive care provided. Blood pressure was closely monitored and remained stable. Renal parameters and electrolytes were closely monitored. Electrolytes corrected as needed. Nephrotoxins were avoided. Prior to discharge BUN from 43 down to 27 and creatinine from 1.9 down to 1.3. Acute kidney injury resolved, likely was due to sepsis. Patient clinically stabilized and was ready for discharge back to subacute senior living facility for continuation of care. FINAL DIAGNOSES: Sepsis Healthcare associated pneumonia Possible aspiration pneumonia Acute kidney injury-resolved History of CVA Brain cancer Dementia Chronic respiratory failure with hypoxia Tracheostomy status Dysphagia , G-tube COPD Pacemaker Seizure disorder Hypertension DISCHARGE MEDICATIONS: List of medication was sent to accepting facility DISCHARGE INSTRUCTIONS: Patient was discharged to subacute senior living facility. Follow up with medical doctor at the facility. I have been assigned to dictate discharge summary for this account. I was not involved in the patient's management. Kym Vieyra NP Jan 11, 2019 12:04
--- NOTE | 2019-01-12 16:58 | Diagnostic Imaging Report ---
Indications: Dysphagia Technique: Patient ingested multiple substances under the supervision of speech pathology. Video fluoroscopic recording performed. Total fluoroscopy time 315.7 seconds. Total dose area product 0.09308 mGycm2 Total number of images-11 Comparison: none Findings: Penetration and aspiration of thin liquid barium is demonstrated. Episodes of penetration and aspiration of nectar thick liquid barium also demonstrated. With honey thick liquid barium, as well as barium puree an masticated solid, there is considerable early pooling in the hypopharynx, but no definite aspiration or penetration. Impression: Positive for aspiration of nectar thick and thin liquid barium Please refer to speech pathology report for more detailed analysis
== END 2019-01-10 21:13 | DRG 870 ==
LOC: EDBD 00:13 → EMR 00:28 → EDBEDREQ 01:27 → 2W 01:42 → EDBEDREQSVC 01:47 → EDBEDREQ 02:04
PROC: 5A1955Z Respiratory Ventilation, Greater than 96 Consecutive Hours (ICD-10-PCS; principal; 2019-01-05)
DX: A41.9 Sepsis, unspecified organism (principal); J69.0 Pneumonitis due to inhalation of food and vomit; N17.9 Acute kidney failure, unspecified; J96.11 Chronic respiratory failure with hypoxia; Z43.1 Encounter for attention to gastrostomy; Z99.11 Dependence on respirator [ventilator] status; R65.20 Severe sepsis without septic shock; Y95 Nosocomial condition; Z86.73 Personal history of transient ischemic attack (TIA), and cerebral infarction without residual deficits; Z85.841 Personal history of malignant neoplasm of brain; F03.90 Unspecified dementia, unspecified severity, without behavioral disturbance, psychotic disturbance, mood disturbance, and anxiety; Z43.0 Encounter for attention to tracheostomy; R13.10 Dysphagia, unspecified; J44.9 Chronic obstructive pulmonary disease, unspecified; G40.909 Epilepsy, unspecified, not intractable, without status epilepticus; I10 Essential (primary) hypertension
CPT/HCPCS: 36415; 36600; 71045; 74230; 80048; 80053; 82550; 82553; 82803; 82962; 83605; 83735; 83880; 84484; 85025; 85610; 85730; 87040; 87081; 93005; 94002; 94003; 94664; 96365; 96367; 96368; 99291; J1815